=== PATIENT | male | born 1970 | race African-American/Black ===

== ENCOUNTER 2016-04-11 06:12 | Observation (INO) | payer BC, OTHER ==
--- NOTE | 2016-04-11 06:56 | ERNOTE ---
Medical Problem HPI - General Chief Complaint: General Assessment Time Seen by Provider: 04/11/16 06:33 Source: patient Exam Limitations: no limitations - Immun/Allergies/Home Medications Allergies/Adverse Reactions: Allergies amlodipine besylate [From Norvas] Allergy (Mild, Verified 04/11/16 06:23) EDEMA Iodinated Contrast Media - IV Dye Allergy (Unknown, Verified 04/11/16 06:23) shellfish derived Allergy (Unknown, Verified 04/11/16 06:23) Home Medications: HOME MEDICATIONS Buspirone HCl [Buspar] 10 mg PO BID 06/29/12 [Last Taken Unknown] Hydrochlorothiazide [Hydrodiuril] 25 mg PO DAILY 06/24/14 [Last Taken 07/01/14 06:00] Labetalol HCl [Trandate] 300 mg PO BID 06/24/14 [Last Taken 07/01/14 06:00] Losartan Potassium [Cozaar] 100 mg PO DAILY 06/24/14 [Last Taken 07/01/14 06:00] Clonidine HCl [Catapres] 0.2 mg PO BID 04/11/16 [Last Taken Unknown] - History of Present History Narrative: pt has had a cold since Sunday. today he is weak all over and has numbness down his left arm Timing: getting worse Severity: moderate Review of Systems - Review of Systems Constitutional: Present: See HPI, fever - 99 "up and down", weakness, fatigue EYE: Present: no symptoms reported ENT: Present: nose congestion Respiratory: Present: cough Cardiology: Absent: chest pain, edema Gastrointestinal/Abdominal: Present: nausea. Absent: vomiting, diarrhea Genitourinary: Present: no symptoms reported Musculoskeletal: Present: muscle pain - "all over" Skin: Present: no symptoms reported Neurological: Present: See HPI, numbness, tingling, other - Pain in left arm previously Endocrine: Absent: excessive sweating - Patient's Past Medical History Patient History - Medical: Other Patient History - Cardiac/Respiratory: Hypertension Patient History - Surgical Procedures: Other - Family History Mother Family History - Medical: History Unknown Father Family History - Medical: History Unknown - Social History Living Situations: home Smoking Status: Current every day smoker Have you smoked in the past 12 months: Yes Do you dip or chew tobacco: No Alcohol Use: occasionally Drug Use: none Physical Exam - Physical Exam General Appearance: Present: wd/wn, alert, no apparent distress Eye Exam: Normal inspection: bilateral Ears, Nose, Throat: Present: normal ENT inspection Neck: Present: normal inspection, supple Respiratory: Present: no respiratory distress, normal breath sounds, lungs clear Cardiovascular/Chest: Present: regular rate, rhythm, systolic murmur - 2/6 Extremity Exam: Present: normal inspection, non-tender, no edema, normal range of motion Neurological Exam: Present: alert, oriented, normal mood/affect, no motor/ sensory deficits Skin Exam: Present: normal color, warm/dry Lymphatic Exam: Present: no adenopathy ED Progress - Results and Orders Patient's Lab Results:: I have reviewed the patient's lab results. Results and Orders: Laboratory Tests 04/11/16 04/11/16 06:55 06:55 WBC 5.6 Hgb 14.7 Hct 41.4 L Plt Count 182 Neutrophils % 75.7 H Sodium 140 Potassium 2.5 L Chloride 101 Anion Gap 10.8 BUN 15 Creatinine 1.62 H Est GFR (Non-Af Amer) 60 Random Glucose 138 H Calcium 8.6 Total Bilirubin 0.9 AST 26 ALT 54 Alkaline Phosphatase 80 Troponin I 0.047 Total Protein 6.9 Albumin 3.8 - Vital Signs Vital Signs: Vital Signs 04/11/16 06:17 Temperature 37.3 C Pulse Rate 88 Respiratory 14 Rate Blood Pressure 196/96 O2 Sat by Pulse 97 Oximetry - EKG EKG: nonspecific ST T wave changes EKG read: Interp. by me - Progress/Reassessment Chief Complaint: General Assessment Progress Note-Subjective: 04/11/16 07:[address] Sanchez, Agrees with admit Departure - Departure Clinical Impression: Hypokalemia Disposition: [facility] Condition: Good
[2016-04-11 06:59] LABS: Hematocrit 41.4 % (42.0-52.0); Hemoglobin 14.7 gm/dL (13.5-18.0); Mean Cell Volume 88.3 fl (78-100); Mean Corpuscular Hemoglobin 31.3 pg (27-31); Mean Corpuscular Hgb Conc 35.5 g/dl (32-36); Mean Platelet Volume 10.9 fl (6.0-9.5); Neutrophil # 4.2 K/mm3 (1.3-6.0); Neutrophil % 75.7 % (42-75.0); Platelet Count 182 K/mm3 (150-450); Red Blood Count 4.69 M/mm3 (4.7-6.0); Red Cell Distribution Width 12.3 % (11.5-14.0); White Blood Count 5.6 K/mm3 (4.0-10.5)
[2016-04-11 07:19] LABS: Albumin * 3.8 gm/dl (3.4-5.0); Anion Gap 10.8 mmol/L (6.8-13.8); BUN/Creatinine Ratio 9.3 (9.0-21.6); Bilirubin, Total 0.9 mg/dL (0.0-1.1); Ca. Corrected For Albumin 8.4 mg/dL (8.4-10.2); Calcium * 8.6 mg/dL (7.9-10.9); Carbon Dioxide 30.7 mmol/L (24-32.6); Total Protein 6.9 gm/dL (6.2-8.2)
[2016-04-11 07:20] LABS: Troponin I 0.047 ng/ml (0.00-0.10)
[2016-04-11 07:28] LABS: Potassium 2.5 mmol/L (3.4-4.6)
[2016-04-11] MEDS ORDERED: POTASSIUM CHLORIDE 20 MEQ TABLET.SA PO ONE (08:13)
[2016-04-11] MEDS ORDERED: FLU VACC QS2016-17 36MOS UP/PF 60 MCG/0.5 ML DISP.SYRIN IM ONE (09:18)
[2016-04-11] MEDS: POTASSIUM CHLORIDE 20 MEQ in DEXTROSE 5%-NORMAL SALINE 990 ML IV SCH ×2 (09:19→16:49)
[2016-04-11] MEDS: ACETAMINOPHEN 500 MG TABLET PO PRN ×2 (09:55→16:55)
[2016-04-11 10:36] LABS: Chol/HDL Risk Ratio 3.5 mg/dL (3.3-5.0)
[2016-04-11] MEDS ORDERED: guaiFENesin 100 MG/5 ML BTL PO PRN (10:39)
--- NOTE | 2016-04-11 10:42 | HP ---
Chief Complaint - Chief Complaint Date of Service: 04/11/16 Time of Service: 09:00 Chief Complaint: Weakness and Parathesia History of Present Illness: 46 years old male adm to the hospital from ER with reports of parathesia and weakness than began Sunday. PMH significant for depression, alcohol abuse, hypertension, hypokalenia and smoker. Pt stated Sunday he was having weakness, numbness and tingling to left arm. Yesterday he started with a non productive cough, body ache and a fever today. He Follow up with Dr Spring for uncontrolled Hypertension, despite changes made to his medications his blood pressure remain elevated SBP 170 and DBP 90 or >. Pt stated he drink a bottle Gin or vodko daily to help with his depression. pt is agreeable to follow up with Dr. keith. In ER K+ 2.5 and he was supplemented. - Patient's Past Medical History Patient History - Medical: Alcohol Abuse, Anxiety, Depression, GERD, Kidney stone, Obesity, Other - smoker Patient History - Cardiac/Respiratory: Hypertension Patient History - Cancer: No Hx of Cancer Patient History - Surgical Procedures: Other - Incision and draiange of abcess, Fistulotomy - Family History Mother Family History - Medical: , History Unknown Father Family History - Medical: , History Unknown - Social History Living Situations: home Does anyone smoke in the home?: Yes Smoking Status: Current every day smoker Have you smoked in the past 12 months: Yes - 1 pack Do you dip or chew tobacco: No Smoking Start Date: 03/26/88 Smoking Stop Date: 04/10/16 Patient requests Smoking Cessation Consult: Yes Initiate information on Smoking Cessation: Yes Alcohol Use: heavy - Daily bottle Gin or vodka Drug Use: none - Immunizations Immunizations Up to Date: No History of Influenza Vaccine: No Review Of Systems (GEN) - Review of Systems Generalized/Overall Review: Present: Weakness, Chills EENTM: Present: No Symptoms Reported Respiratory: Present: Cough - non productive Cardiac: Present: No Symptoms Reported Abdominal: Present: No Symptoms Reported Genitourinary: Present: No Symptoms Reported Musculoskeletal: Present: Other - weakness Neurological: Present: Depressed, Numbness, Tingling Skin: Present: No Symptoms Reported Endocrine: Present: No Symptoms Reported Allergies/Adverse Reactions: Allergies Allergy/AdvReac Type Severity Reaction Status Date / Time amlodipine besylate Allergy Mild EDEMA Verified 04/11/16 06:23 [From [facility]] Iodinated Contrast Media - Allergy Unknown Verified 04/11/16 06:23 IV Dye shellfish derived Allergy Unknown Verified 04/11/16 06:23 Home Medications: HOME MEDICATIONS Buspirone HCl [Buspar] 10 mg PO BID 06/29/12 [Last Taken 04/11/16 05:00] Hydrochlorothiazide [Hydrodiuril] 25 mg PO DAILY 06/24/14 [Last Taken 04/11/16 05:00] Labetalol HCl [Trandate] 300 mg PO BID 06/24/14 [Last Taken 04/11/16 05:00] Losartan Potassium [Cozaar] 100 mg PO DAILY 06/24/14 [Last Taken 04/11/16 05:00] Clonidine HCl [Catapres] 0.2 mg PO BID 04/11/16 [Last Taken 04/11/16 05:00] Exam - Exam Vital Signs: Vital Signs - Last Taken Temp 38.4 C H 04/11/16 08:47 Pulse 82 04/11/16 08:47 Resp 18 04/11/16 08:47 BP 157/86 04/11/16 08:47 Pulse Ox 98 04/11/16 08:47 Constitutional: Present: Alert, Oriented x3, Cooperative, Well developed, No distress, Obese ENT Exam: Present: normal ENT inspection Eye Exam: bilateral eye: PERRL Neck: Present: full range of motion Back Exam: Present: normal inspection, no CVA tenderness, no vertebral tenderness Respiratory: Present: chest non-tender, lungs clear, normal breath sounds, no respiratory distress Cardiovascular/Chest: Present: normal peripheral pulses, regular rate, rhythm, no chest tenderness, no edema Peripheral Pulses: dorsalis-pedis (R): 3+, dorsalis-pedis (L): 3+ Abdomen: Present: Normal bowel sounds, soft, nontender, nondistended /Rectal: Present: Exam deferred Extremity: Present: normal range of motion, non-tender, normal inspection, no pedal edema, no calf tenderness Skin Exam: Present: normal color, warm/dry, no cyanosis Lymphatic: Present: no adenopathy Neurologic: Present: oriented x 3 Appearance: Present: appropriate appearance Eye contact: Present: cooperative, good eye contact Thoughts: Present: normal thought pattern Diagnostic Studies: Laboratory Results WBC 5.6 K/mm3 (4.0-10.5) 04/11/16 06:55 RBC 4.69 M/mm3 (4.7-6.0) L 04/11/16 06:55 Hgb 14.7 gm/dL (13.5-18.0) 04/11/16 06:55 Hct 41.4 % (42.0-52.0) L 04/11/16 06:55 MCV 88.3 fl (78-100) 04/11/16 06:55 MCH 31.3 pg (27-31) H 04/11/16 06:55 MCHC 35.5 g/dl (32-36) 04/11/16 06:55 RDW 12.3 % (11.5-14.0) 04/11/16 06:55 Plt Count 182 K/mm3 (150-450) 04/11/16 06:55 MPV 10.9 fl (6.0-9.5) H 04/11/16 06:55 Immature Gran % (Auto) 0.40 % (0.001-0.429) 04/11/16 06:55 Immature Gran # (Auto) 0.02 K/mm3 (0.000-0.0310) 04/11/16 06:55 Neutrophils % 75.7 % (42-75.0) H 04/11/16 06:55 Lymphocytes % 12.9 % (20-51) L 04/11/16 06:55 Monocytes % 9.1 % (0.0-9) H 04/11/16 06:55 Eosinophils % 1.4 % (0.0-3.0) 04/11/16 06:55 Basophils % 0.5 % (0.0-1.0) 04/11/16 06:55 Nucleated RBC % 0.0 k/mm3 (0-1) 04/11/16 06:55 Neutrophils # 4.2 K/mm3 (1.3-6.0) 04/11/16 06:55 Lymphocytes # 0.7 k/mm3 (1.5-3.5) L 04/11/16 06:55 Monocytes # 0.5 k/mm3 (0.0-1.0) 04/11/16 06:55 Eosinophils # 0.1 k/mm3 (0.0-0.7) 04/11/16 06:55 Absolute Basophils 0.0 k/mm3 (0.0-0.1) 04/11/16 06:55 Sodium 140 mmol/L (132-142) 04/11/16 06:55 Plasma Sodium 141 mmol/L (130-142) 04/11/16 06:55 Potassium 2.5 mmol/L (3.4-4.6) L 04/11/16 06:55 Chloride 101 mmol/L (97-106) 04/11/16 06:55 Carbon Dioxide 30.7 mmol/L (24-32.6) 04/11/16 06:55 Anion Gap 10.8 mmol/L (6.8-13.8) 04/11/16 06:55 BUN 15 mg/dL (6-23) 04/11/16 06:55 Creatinine 1.62 mg/dL (0.4-1.4) H 04/11/16 06:55 Est GFR (Non-Af Amer) 60 mL/min (60-130) 04/11/16 06:55 BUN/Creatinine Ratio 9.3 (9.0-21.6) 04/11/16 06:55 Random Glucose 138 mg/dL (70-110) H 04/11/16 06:55 Calcium 8.6 mg/dL (7.9-10.9) 04/11/16 06:55 Calcium Adj for Albumin 8.4 mg/dL (8.4-10.2) 04/11/16 06:55 Total Bilirubin 0.9 mg/dL (0.0-1.1) 04/11/16 06:55 AST 26 U/L (0-48) 04/11/16 06:55 ALT 54 U/L (19-67) 04/11/16 06:55 Alkaline Phosphatase 80 U/L (50-170) 04/11/16 06:55 Troponin I 0.047 ng/ml (0.00-0.10) 04/11/16 06:55 Total Protein 6.9 gm/dL (6.2-8.2) 04/11/16 06:55 Albumin 3.8 gm/dl (3.4-5.0) 04/11/16 06:55 Assessment/Plan - Narrative Narrative: Hypokalemia- likely due to diuretic use Numbness, parathesia and weakness can account for pt hypokalemic state. Supplemented with K-dur 60 meq x1 now and continue with scheduled doses. Will Hold HCTZ monitor BMP later today Hypertension- uncontrolled, could account to his alcohol abuse and smoking On adm BP 171/89---->157/86, pt had taken his daily dose of medications at home before coming to hospital Monitor Vitals signs. Resume home dose of medications Smoking cessation and alcohol cessation education Depression continue with home dose Buspar Follow up with Dr Keith upon discharge Substance abuse Smoking cessation and nicotine patch alcohol withdrawal protocols. Influenza- suspicious Reports of body ache, temp 38.4 on adm Influenza antigen pending Robitussin PRN Tylenol for pain/ Fever On adm WBC 5.6---> CXR no acute cardiopulmonary findings VTE ppx : SCD and ambulate GI ppx: protonix Code Status: Full - Assessment/Plan (1) Hypokalemia Problem: Acute (2) Malignant hypertension Problem: Chronic (3) Depression Problem: Chronic (4) Smoker Problem: Chronic (5) Alcohol abuse Problem: Chronic
[2016-04-11] MEDS ORDERED: LABETALOL HCL 300 MG TABLET PO SCH (11:00)
[2016-04-11] MEDS: POTASSIUM CHLORIDE 20 MEQ TABLET.SA PO SCH ×4 (11:14→22:45)
[2016-04-11] MEDS: NICOTINE 21 MG PATC TD SCH (11:14)
[2016-04-11] MEDS: CLONIDINE HCL 0.2 MG TABLET PO SCH ×2 (11:15→20:01)
[2016-04-11] MEDS: busPIRone HCL 5 MG TABLET PO SCH ×2 (11:15→20:01)
[2016-04-11] MEDS: LABETALOL HCL 200 MG, LABETALOL HCL 100 MG PO SCH ×4 (11:16→20:02)
[2016-04-11] MEDS: FAMOTIDINE 20 MG TABLET PO SCH (11:16)
[2016-04-11] MEDS: buPROPion HCL 150 MG TAB.SR.24H PO SCH (12:50)
[2016-04-11] MEDS: ENALAPRILAT DIHYDRATE 1.25 MG/ML VIAL IV SCH ×2 (16:48→22:46)
[2016-04-11 17:25] LABS: Anion Gap 12.7 mmol/L (6.8-13.8); BUN/Creatinine Ratio 9.4 (9.0-21.6); Calcium * 8.8 mg/dL (7.9-10.9); Carbon Dioxide 29.2 mmol/L (24-32.6); Estimated Creat Clear 64.9; Potassium 2.9 mmol/L (3.4-4.6)
[2016-04-11] MEDS ORDERED: SPIRONOLACTONE 25 MG TABLET PO STA (19:09)
[2016-04-11] MEDS ORDERED: POTASSIUM CHLORIDE 10 MEQ TABLET.SA ONE (19:58)
[2016-04-12] MEDS ORDERED: POTASSIUM CHLORIDE 20 MEQ TABLET.SA ONE (00:28)
[2016-04-12] MEDS: POTASSIUM CHLORIDE 20 MEQ TABLET.SA PO SCH (00:33)
[2016-04-12] MEDS: ACETAMINOPHEN 500 MG TABLET PO PRN (00:35)
[2016-04-12] MEDS: POTASSIUM CHLORIDE 20 MEQ in DEXTROSE 5%-NORMAL SALINE 990 ML IV SCH (01:20)
[2016-04-12] MEDS: SODIUM CHLORIDE 45 SPRAY BTL NS SCH ×2 (01:49→08:58)
[2016-04-12] MEDS: ENALAPRILAT DIHYDRATE 1.25 MG/ML VIAL IV SCH (04:07)
[2016-04-12 05:40] LABS: Hematocrit 40.3 % (42.0-52.0); Hemoglobin 13.6 gm/dL (13.5-18.0); Mean Cell Volume 90.6 fl (78-100); Mean Corpuscular Hemoglobin 30.6 pg (27-31); Mean Corpuscular Hgb Conc 33.7 g/dl (32-36); Mean Platelet Volume 11.7 fl (6.0-9.5); Neutrophil # 1.9 K/mm3 (1.3-6.0); Neutrophil % 54.2 % (42-75.0); Platelet Count 167 K/mm3 (150-450); Red Blood Count 4.45 M/mm3 (4.7-6.0); Red Cell Distribution Width 12.5 % (11.5-14.0); White Blood Count 3.5 K/mm3 (4.0-10.5)
[2016-04-12 05:53] LABS: Albumin * 3.5 gm/dl (3.4-5.0); Anion Gap 11.8 mmol/L (6.8-13.8); BUN/Creatinine Ratio 7.9 (9.0-21.6); Bilirubin, Total 0.8 mg/dL (0.0-1.1); Ca. Corrected For Albumin 8.2 mg/dL (8.4-10.2); Calcium * 8.1 mg/dL (7.9-10.9); Carbon Dioxide 27.5 mmol/L (24-32.6); Potassium 3.3 mmol/L (3.4-4.6); Total Protein 6.6 gm/dL (6.2-8.2)
[2016-04-12] MEDS ORDERED: POTASSIUM CHLORIDE 20 MEQ TABLET.SA PO ONE (07:51)
[2016-04-12] MEDS: busPIRone HCL 5 MG TABLET PO SCH (08:57)
[2016-04-12] MEDS: buPROPion HCL 150 MG TAB.SR.24H PO SCH (08:57)
[2016-04-12] MEDS: CLONIDINE HCL 0.2 MG TABLET PO SCH (08:57)
[2016-04-12] MEDS: FAMOTIDINE 20 MG TABLET PO SCH (08:58)
[2016-04-12] MEDS: LABETALOL HCL 200 MG, LABETALOL HCL 100 MG PO SCH ×2 (08:58)
[2016-04-12] MEDS ORDERED: LOSARTAN POTASSIUM 50 MG TABLET PO SCH (09:00)
[2016-04-12] MEDS ORDERED: FLUTICASONE PROPIONATE 120 SPRAY INHALER NS SCH (09:30)
[2016-04-12] MEDS ORDERED: SPIRONOLACTONE 25 MG TABLET PO SCH (10:00)
--- NOTE | 2016-04-12 10:02 | DS ---
(1) Hypokalemia Problem: Acute (2) Malignant hypertension Problem: Chronic (3) Depression Problem: Chronic (4) Smoker Problem: Chronic (5) Alcohol abuse Problem: Chronic Description of Stay: Date of admission: 04/11/16 Date of discharge: 04/12/16 Hospital Course 46 years old male adm to the hospital from ER with reports of parathesia and weakness than began Sunday. PMH significant for depression, alcohol abuse, hypertension, hypokalemia and smoker. Pt stated Sunday he was having weakness, numbness and tingling to left arm. Yesterday he started with a non productive cough, body ache and a fever today. He Follow up with Dr Spring for uncontrolled Hypertension, despite changes made to his medications his blood pressure remain elevated SBP 170 and DBP 90 or >. Pt stated he drink a bottle Gin or vodko daily to help with his depression. During this adm he was supplemented with K-dur for hypokalemia, he was initiated with Aldactone and encouraged to cut back on his drinking and smoking thats contributing to his hypertension and hypokalemia. pt is somewhat reluctant to discuss plan of action he will take upon discharge to have a healthier lifestyle. he will need to follow up with Dr Montgomery and schedule out -pt sleep study. He will continue with wellbutrin for his depression upon discharge. He isn't optimistic about his job prospect and stated he is depress about every day happenings in his life. pt understand that continued excessive drinking and smoking and BP uncontrolled can lead to stroke, [place] or his inevitable . Plan of care discussed with pt he verbalized understanding and agree. Diagnostic testing: CXR: No acute cardiopulmonary findings New medications and Changes made: Valsartan 80mg BID Aldactone 25mg daily chlorthalidone 12.5mg daily. Follow up: See Dr Montgomery 1-7 days will need potential sleep study BMP in 3 days Alcohol Anonymous counseling Procedures Performed: none Discharge Disposition: Home self care Disposition: Home self-care Condition: Good Discharge Activity: Activity as tolerated Discharge Diet: Other - Low sodium diet Referrals: Amy Montgomery MD [Primary Care Provider] - Additional Patient Instructions (free text): Follow up with Dr Montgomery in 1-7 days and bring BMP results Need out-pt sleep study Seek AA counseling, please provide info Prescriptions (Any new or edited meds): Chlorthalidone [Hygroton] 12.5 mg PO DAILY #30 tab Fluticasone Propionate [Flonase] 1 spray NS DAILY #1 inhaler Nicotine [Nicoderm] 21 mg TD Q24H #30 patch.td24 Spironolactone [Aldactone] 25 mg PO DAILY #30 tablet Valsartan [Diovan] 80 mg PO BID #60 tablet buPROPion HCL [Wellbutrin Xl] 150 mg PO DAILY #30 tab.sr.24h guaiFENesin [Robitussin] 100 mg PO Q4H PRN #1 btl PRN Reason: Cough Complete Home Medications List: Complete Home Medication List: Buspirone HCl [Buspar] 10 mg PO BID 06/29/12 Labetalol HCl [Trandate] 300 mg PO BID 06/24/14 Clonidine HCl [Catapres] 0.2 mg PO BID 04/11/16 Chlorthalidone [Hygroton] 12.5 mg PO DAILY #30 tab 04/12/16 Fluticasone Propionate [Flonase] 1 spray NS DAILY #1 inhaler 04/12/16 Nicotine [Nicoderm] 21 mg TD Q24H #30 patch.td24 04/12/16 Spironolactone [Aldactone] 25 mg PO DAILY #30 tablet 04/12/16 Valsartan [Diovan] 80 mg PO BID #60 tablet 04/12/16 buPROPion HCL [Wellbutrin Xl] 150 mg PO DAILY #30 tab.sr.24h 04/12/16 guaiFENesin [Robitussin] 100 mg PO Q4H PRN #1 btl 04/12/16 Amb Orders for Discharge: Basic Metabolic Panel Time Frame: 2 Days, Location: Determined By Patient
[2016-04-12] MEDS: NICOTINE 21 MG PATC TD SCH (10:24)
[2016-04-12 10:56] VITALS: BP 165/99
== END 2016-04-12 13:30 | disposition home or self-care (01) ==
LOC: ER 06:12 → MS 07:59
PROVIDERS: ADMIT Internal Medicine; ATTEND Internal Medicine
DX: E87.6 Hypokalemia (principal); I10 Essential (primary) hypertension; F17.210 Nicotine dependence, cigarettes, uncomplicated; F32.9 Major depressive disorder, single episode, unspecified; F10.10 Alcohol abuse, uncomplicated
CPT/HCPCS: 36415; 71020; 80048; 80053; 80061; 82947; 84132; 84484; 85025; 87400; 90471; 90686; 93005; 96365; 96375; 99284; G0378

== ENCOUNTER 2016-05-18 16:24 | Emergency (ER) | payer BC, OTHER ==
[2016-05-18] MEDS ORDERED: DICYCLOMINE HCL 10 MG/ML AMPUL IM ONE ×2 (16:55→17:09)
--- NOTE | 2016-05-18 17:11 | ERNOTE ---
Abdominal HPI - Narrative Date of Service: 05/18/16 - General Chief Complaint: Abdominal Pain Time Seen by Provider: 05/18/16 16:34 Source: patient Exam Limitations: no limitations - Immun/Allergies/Home Medications Immunizatons: IMMUNIZATION HX Immunizations Up to Date No History of Influenza Vaccine No Allergies/Adverse Reactions: Allergies amlodipine besylate [From Norvasc] Allergy (Mild, Verified 04/11/16 06:23) EDEMA Iodinated Contrast Media - IV Dye Allergy (Unknown, Verified 04/11/16 06:23) shellfish derived Allergy (Unknown, Verified 04/11/16 06:23) Home Medications: HOME MEDICATIONS Buspirone HCl [Buspar] 10 mg PO BID 06/29/12 [Last Taken 04/11/16 05:00] Labetalol HCl [Trandate] 300 mg PO BID 06/24/14 [Last Taken 04/11/16 05:00] Clonidine HCl [Catapres] 0.2 mg PO BID 04/11/16 [Last Taken 04/11/16 05:00] Spironolactone [Aldactone] 25 mg PO DAILY #30 tablet 04/12/16 [Last Taken Unknown] buPROPion HCL [Wellbutrin Xl] 150 mg PO DAILY #30 tab.sr.24h 04/12/16 [Last Taken Unknown] Aspirin [Aspirin Enteric Coated] 81 mg PO DAILY 05/18/16 [Last Taken Unknown] Losartan/Hydrochlorothiazide [Hyzaar 100-25 Tablet] 1 each PO DAILY 05/18/16 [ Last Taken Unknown] - History of Present Illness Narrative: Pt presents to ED with c/o left lower quadrant abdominal pain. Pt states the pain is a constant ache with occasional shooting pain that wraps around to left side of back. Pt states the pain states the pain was a 7/10 this morning on pain scale and now is a 5/10. Pt states this started the pain started around 03/11 which is about 1 1/2 weeks ago. Pt denies food making the pain worse or better. Pt states pressure on the abdomen makes it worse. Pt feels bloated. Pt had one formed bowel movement today. Pt states he normally has 3 bowel movements a day. Pt denies fevers, nausea, vomiting, sore throat, nasal drainage , cough, shortness of breath, chest pain. Date (Duration): 05/07/16 Time (Timing): 09:00 Timing: constant Quality: moderate - pain 5/10 Activities at Onset: none Associated Symptoms: Present: back pain - left back pain. Absent: headache, chest pain, fever/chills, heartburn, nausea, vomiting, loss of appetite, shortness of breath Prior Abdominal Problems: Present: none Prior Treatment: Present: recently seen Review of Systems - Review of Systems Constitutional: Present: no symptoms reported. Absent: recent illness, fever, weakness, fatigue, decreased activity level EYE: Present: no symptoms reported. Absent: eye pain, vision changes ENT: Present: no symptoms reported. Absent: ear pain, nose congestion, nasal drainage, sore throat Respiratory: Present: no symptoms reported. Absent: shortness of breath, cough Cardiology: Present: no symptoms reported. Absent: chest pain, palpitations Gastrointestinal/Abdominal: Present: abdominal pain - left lower quadrant 5/10. Absent: nausea, vomiting, diarrhea, constipation, eating less Genitourinary: Present: no symptoms reported. Absent: frequency, pain Musculoskeletal: Present: back pain - left lower quadrant abd pain radiates around abd to the left lower back Skin: Present: no symptoms reported. Absent: rash Neurological: Present: no symptoms reported. Absent: anxiety, depressed, headache, dizziness/light-headedness, numbness, tingling Endocrine: Present: no symptoms reported. Absent: excessive sweating, intolerance to heat, intolerance to cold, increased hunger, increased thirst Hematologic/Lymphatic: Present: no symptoms reported. Absent: easy bruising Psych: Present: no symptoms reported All Other Systems: All systems neg except as marked - Patient's Past Medical History Patient History - Medical: Alcohol Abuse, Anxiety, Depression, GERD, Kidney stone, Obesity, Other Patient History - Cardiac/Respiratory: CPAP/BiPAP Home Use, Sleep Apnea Patient History - Cancer: No Hx of Cancer Patient History - Surgical Procedures: Other - Family History Mother Family History - Medical: , History Unknown Father Family History - Medical: , History Unknown - Social History Living Situations: home Abuse History: No History of abuse Psych History: Hx of Depression Does anyone smoke in the home?: Yes Smoking Status: Current some day smoker Have you smoked in the past 12 months: Yes Alcohol Use: heavy Drug Use: none - Immunizations Immunizations Up to Date: No History of Influenza Vaccine: No Physical Exam - Physical Exam General Appearance: Present: wd/wn, alert, no apparent distress. Absent: anxious Eye Exam: Normal inspection: bilateral, PERRL: bilateral, EOMI: bilateral Ears, Nose, Throat: Present: hearing grossly normal Neck: Present: normal inspection, nontender, supple Respiratory: Present: no respiratory distress, normal breath sounds, no accessory muscle use, chest nontender, lungs clear. Absent: decreased breath sounds, crackles, rhonchi, wheezing Cardiovascular/Chest: Present: regular rate, rhythm, no murmur, normal peripheral pulses. Absent: irregularly irregular Gastrointestinal/Abdominal: Present: normal bowel sounds, soft, no organomegaly , tenderness - left upper and lower quadrant pain to palpation, distended. Absent: abnormal bowel sounds, guarding, mass Back Exam: Present: normal inspection, normal range of motion, no CVA tenderness , no vertebral tenderness. 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 Absent: skin rash Lymphatic Exam: Present: no adenopathy ED Progress - Date and Time Seen: Date and Time: 05/18/16 19:40 Attempted to get ahold of Dr Crum who is admissions coordinator for [facility] for 45 minutes without success so called to consult Dr Shelton at [facility]. After Nikita requested pt. be sent to him Dr Crum called back and requested that we send him to [facility] which pt. would prefer anyway and is the closest facility so will send pt. to [facility] for stent placement early in the am. - Results and Orders Patient's Lab Results:: I have reviewed the patient's lab results. - Vital Signs Patient's Vital Signs:: I have reviewed the patient's vital signs. Vital Signs: Vital Signs 05/18/16 16:28 Temperature 36.1 C L Pulse Rate 70 Respiratory 18 Rate Blood Pressure 148/88 O2 Sat by Pulse 95 Oximetry - CT/Ultrasound CT/Ultrasound Narrative: CT scan positive for 9.5mm stone. - Progress/Reassessment Chief Complaint: Abdominal Pain Progress:: Improved Departure - Departure Clinical Impression: Renal calculus or stone Disposition: [facility] Condition: Good Referrals: Amy Montgomery MD [Primary Care Provider] -
[2016-05-18 17:26] LABS: Hematocrit 40.4 % (42.0-52.0); Hemoglobin 13.6 gm/dL (13.5-18.0); Mean Corpuscular Hgb Conc 33.7 g/dl (32-36); Mean Platelet Volume 10.3 fl (6.0-9.5); Neutrophil # 2.5 K/mm3 (1.3-6.0); Neutrophil % 49.9 % (42-75.0); Platelet Count 206 K/mm3 (150-450); Red Blood Count 4.39 M/mm3 (4.7-6.0); Red Cell Distribution Width 13.1 % (11.5-14.0); White Blood Count 5.1 K/mm3 (4.0-10.5)
[2016-05-18 17:29] LABS: Urine Bilirubin Negative (NEGATIVE); Urine Blood 250 /ul (NEGATIVE); Urine Ketone Negative (NEGATIVE); Urine Nitrite Negative (NEGATIVE); Urine Protein 15 mg/dL (NEGATIVE); Urine Specific Gravity >=1.030 SP.GR. (1.005-1.030); Urine Urobilinogen Normal (NORMAL)
[2016-05-18 17:40] LABS: Urine Appearance Slightly Cloudy; Urine Bacteria 1+; Urine Color Yellow; Urine RBC >50 /hpf (0-5); Urine WBC TRACE /hpf (0-5)
[2016-05-18 17:45] LABS: Albumin * 4.2 gm/dl (3.4-5.0); Anion Gap 10.3 mmol/L (6.8-13.8); BUN/Creatinine Ratio 10.7 (9.0-21.6); Bilirubin, Total 0.4 mg/dL (0.0-1.1); Ca. Corrected For Albumin 8.4 mg/dL (8.4-10.2); Calcium * 8.9 mg/dL (7.9-10.9); Carbon Dioxide 31.9 mmol/L (24-32.6); Potassium 3.2 mmol/L (3.4-4.6); Total Protein 7.6 gm/dL (6.2-8.2)
[2016-05-18] MEDS ORDERED: NORMAL SALINE 1,000 ML IV ONE (17:50)
[2016-05-18] MEDS ORDERED: KETOROLAC TROMETHAMINE 30 MG/ML VIAL IV ONE (17:56)
[2016-05-18 19:30] VITALS: BP 174/103
== END 2016-05-18 20:41 | disposition short-term general hospital (02) ==
LOC: ER 16:24
DX: N20.0 Calculus of kidney (principal); Z72.0 Tobacco use; F41.8 Other specified anxiety disorders

== ENCOUNTER 2016-05-24 13:22 | Day surgery (SDC) | payer BC, OTHER ==
[~2016-05-24 13:22] MED LIST: NORMAL SALINE 1,000 ML IV PRN
--- OUTSIDE RECORDS SUMMARY | 2016-05-24 13:26 | XMS REPORT | Continuity of Care Document ---
:1970 Author Organization [facility] ([facility]) Address [address] [place] [address] Phone [phone] Care Team Providers Name Role Phone Amy Montgomery Primary Care Provider [phone] Source Comments This disclosure is being made pursuant to the Care Everywhere program, applicable federal and state laws, and may not contain all informaitonavailable regarding this patient.[facility] ([facility]) Active Allergies and Adverse Reactions No Known Allergies Current Medications Prescription Sig. Disp. Refills Start Date End Date Status busPIRone (BUSPAR) Take 10 mg by Active 10 mg tablet mouth 2 times daily. labetalol 300 mg Take 2 360 tablet 3 06/07/2015 Active tablet tablets (600 mg total) by mouth 2 times daily. losartan-hydrochloro Take 1 tablet 30 tablet 1 02/24/2016 Active thiazide 100-25 mg by mouth per tablet daily. cloNIDine HCl 0.2 mg Take 1 tablet 60 tablet 11 04/04/2016 Active tablet (0.2 mg total) by mouth 2 times daily. spironolactone 25 mg Take 25 mg by 0 04/12/2016 Active tablet mouth daily. multivitamin tablet Take 1 tablet Active by mouth daily. buPROPion Take 150 mg Active (WELLBUTRIN XL) 150 by mouth mg extended release every tablet 24 hour morning. chlorthalidone 25 mg Take 25 mg by 0 04/12/2016 Discontinued tablet mouth daily. 7 valsartan 80 mg Take 80 mg by 0 04/12/2016 Discontinued tablet mouth 2 times 7 daily. POTASSIUM Take 1 tablet Discontinued (POTASSIMIN PO) by mouth. 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 CARDIOVASCULAR PROCEDURES STRESS TESTS: SEH (Suboptimal test due to inadequate maximum HR. There were no changes observed w/ stress. ECHO is consistent w/ hypertensive heart disease. Moderate to severe LVH. Read per [facility]) - 01/18/2011 Tobacco abuse Obesity Sleep apnea Overview: CPAP Most Recent Encounters Date Type Specialty Providers Description 05/02/2016 Office Visit [facility] Jodee Spring MD Dx: Essential hypertension (Primary Dx) 04/04/2016 Office Visit [facility] Jodee Spring MD Dx: Essential hypertension, benign (Primary Dx) 02/24/2016 Refill Cardiac Rehabilitation Jodee Spring MD Dx: Essential hypertension (Primary Dx) Social History Tobacco Use Types Packs/Day Years Used Date Former Smoker Cigarettes 1 Quit: 04/11/2016 Smokeless Tobacco: Never Used Tobacco Cessation:Ready to Quit: Yes; Counseling Given: Yes Comments: Alcohol Use Drinks/Week oz/Week Comments Yes Last Filed Vital Signs Vital Sign Reading Time Taken Blood Pressure 180/98 05/02/2016 2:18 PM BACK ROLL LATHE OPERATOR Pulse 60 05/02/2016 2:18 PM BACK ROLL LATHE OPERATOR Temperature 36.1 C (97 F) 05/27/2010 1:37 PM BACK ROLL LATHE OPERATOR Respiratory Rate - - Height 1.753 m (5' 9") 05/02/2016 2:18 PM BACK ROLL LATHE OPERATOR Weight 131.09 kg (289 lb) 05/02/2016 2:18 PM BACK ROLL LATHE OPERATOR Body Mass Index 42.66 05/02/2016 2:18 PM BACK ROLL LATHE OPERATOR Oxygen Saturation - - Plan of Care Date Type Specialty Providers Description 08/17/2016 Appointment Heart and Vascular Joede Spring MD Chief Comp: Patient [address] [place] [address] Visit [phone] (Fax) Health Maintenance Due Date Last Done Comments Hepatitis B Vaccine (1 of 3 - Primary Series) 1970 Tdap Vaccine 1982 Lipid Disorder Screening 1989 MMR Vaccine 1989 Td Vaccine 1989 Influenza Vaccine: Seasonal (#1) 10/25/2015 Results from Last 3 Months Not on file
[2016-05-24] MEDS ORDERED: NORMAL SALINE 1,000 ML IV ONE (14:06)
--- NOTE | 2016-05-24 15:41 | OR ---
Operative Report - Dictated Report Narrative: Location: Main OR Anesthesia: General Preoperative diagnosis: Left stone(s) Postoperative diagnosis: same Procedure: #1 left ESWL Indications: 46-year-old male large 1 cm proximal ureteral calculus post manipulation and stenting. 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 Final pathology reportedly not TA G1 TCC however based on appearance I believe it really is. Very important at least for the next couple of years he have at the very least an annual cystoscopy. Patient is here today for left ESWL. Procedure: Consent obtained. Risks discussed. Brought to the operating room where general endotracheal anesthesia was induced. Timeout taken per protocol. Fluoroscopy was used to localize the stones in 2 planes. A total of 3000 shocks were delivered at a maximal energy of 24 kV. Stone was easily visible at the beginning of the case. There was radiographic evidence of fragmentation at the conclusion of the case. EBL: 0 cc Specimen: None Condition: Patient tolerated Important findings: Stone was very visible at the beginning of case, completely in visible at the conclusion of the case using fluoroscopy. Stent was appropriately positioned prior to surgery and remains. Follow Up: We'll obtain KUB tomorrow morning. Need radiology to call me to make sure there are no clinically significant fragments and that the stone does look indeed fragmented enough to try and remove stent on Sunday. We'll have Dr. Burroughs do that with some anesthesia. If KUB shows significant stone will then change plan to left ureteroscopy with laser/basket possible stent replacement following Sunday. Patient should follow with me after stent removal in roughly 6 weeks with a KUB and urinalysis. We can discuss dietary and go over stone results at that point. We'll need to strain after stent comes out.
[2016-05-24 17:13] VITALS: BP 160/88
== END 2016-05-24 13:23 | disposition home or self-care (01) ==
LOC: AMB 13:22
PROVIDERS: ATTEND Urology
PROC: 0TF7XZZ Fragmentation in Left Ureter, External Approach (ICD-10-PCS; principal; 2016-05-24 16:10)
DX: N20.1 Calculus of ureter (principal); I10 Essential (primary) hypertension; E66.9 Obesity, unspecified; Z68.41 Body mass index [BMI] 40.0-44.9, adult

== ENCOUNTER 2016-05-26 12:40 | Day surgery (SDC) | payer BC, OTHER ==
[~2016-05-26 12:40] MED LIST changes: +ACETAMINOPHEN WITH CODEINE 1 EACH TABLET PO PRN; +CIPROFLOXACIN HCL 500 MG TABLET PO PRN; +KETOROLAC TROMETHAMINE 30 MG/ML VIAL IV PRN; -NORMAL SALINE 1,000 ML IV PRN; +RINGERS SOLUTION,LACTATED 1,000 ML IV PRN; +oxyCODONE HCL/ACETAMINOPHEN 1 TAB TABLET PO PRN
--- OUTSIDE RECORDS SUMMARY | 2016-05-26 12:49 | XMS REPORT | Continuity of Care Document ---
:1970 Author Organization [facility] ([facility]) Address [address] [place] [address] Phone [phone] Care Team Providers Name Role Phone Amy Montgomery Primary Care Provider [phone] Source Comments This disclosure is being made pursuant to the Care Everywhere program, applicable federal and state laws, and may not contain all informaitonavailable regarding this patient.[facility] ([facility]) Active Allergies and Adverse Reactions No Known [...] MD Dx: Essential hypertension, benign (Primary Dx) Social History Tobacco Use Types Packs/Day Years Used Date Former Smoker Cigarettes 1 Quit: 04/11/2016 Smokeless Tobacco: Never Used Tobacco Cessation:Ready to Quit: Yes; Counseling Given: Yes Comments: Alcohol Use Drinks/Week oz/Week Comments Yes Last Filed Vital Signs Vital Sign Reading Time Taken Blood Pressure 180/98 05/02/2016 2:18 PM INDUSTRIAL PRODUCTION MANAGER Pulse 60 05/02/2016 2:18 PM INDUSTRIAL PRODUCTION MANAGER Temperature 36.1 C (97 F) 05/27/2010 1:37 PM INDUSTRIAL PRODUCTION MANAGER Respiratory Rate - - Height 1.753 m (5' 9") 05/02/2016 2:18 PM INDUSTRIAL PRODUCTION MANAGER Weight 131.09 kg (289 lb) 05/02/2016 2:18 PM INDUSTRIAL PRODUCTION MANAGER Body Mass Index 42.66 05/02/2016 2:18 PM INDUSTRIAL PRODUCTION MANAGER Oxygen Saturation - - Plan of Care Date Type Specialty Providers Description 08/17/2016 Appointment Heart and Vascular Jodee Spring MD Chief Comp: Patient [address] [place] [address] Visit [phone] (Fax) Health Maintenance Due Date Last Done Comments Hepatitis B Vaccine (1 of 3 - Primary Series) 1970 Tdap Vaccine 1982 Lipid Disorder Screening 1989 MMR Vaccine 1989 Td Vaccine 1989 Influenza Vaccine: Seasonal (#1) 10/25/2015 Results from Last 3 Months Not on file
[2016-05-26] MEDS ORDERED: RINGERS SOLUTION,LACTATED 1,000 ML IV ONE (13:06)
[2016-05-26] MEDS ORDERED: LIDOCAINE HCL 10 APPL CARTRIDGE TP ONE (14:15)
[2016-05-26 16:26] VITALS: BP 160/94
== END 2016-05-26 12:41 | disposition home or self-care (01) ==
LOC: AMB 12:40
PROVIDERS: ATTEND Urology
PROC: 0TP98DZ Removal of Intraluminal Device from Ureter, Via Natural or Artificial Opening Endoscopic (ICD-10-PCS; principal; 2016-05-26 14:55)
DX: N20.0 Calculus of kidney (principal); I10 Essential (primary) hypertension; E66.01 Morbid (severe) obesity due to excess calories; Z68.41 Body mass index [BMI] 40.0-44.9, adult

== ENCOUNTER 2016-11-12 15:32 | Emergency (ER) | payer BC, OTHER ==
[2016-11-12 16:05] LABS: Hemoglobin 14.3 gm/dL (13.5-18.0); Mean Cell Volume 89.5 fl (78-100); Mean Corpuscular Hemoglobin 31.2 pg (27-31); Mean Corpuscular Hgb Conc 34.9 g/dl (32-36); Mean Platelet Volume 10.5 fl (6.0-9.5); Neutrophil # 2.3 K/mm3 (1.3-6.0); Neutrophil % 49.5 % (42-75.0); Platelet Count 224 K/mm3 (150-450); Red Blood Count 4.58 M/mm3 (4.7-6.0); Red Cell Distribution Width 12.3 % (11.5-14.0); White Blood Count 4.6 K/mm3 (4.0-10.5)
[2016-11-12 16:14] LABS: Urine Appearance Clear; Urine Color Yellow
[2016-11-12 16:15] LABS: Urine Bacteria None Seen; Urine Bilirubin Negative (NEGATIVE); Urine Blood Negative /ul (NEGATIVE); Urine Ketone Negative (NEGATIVE); Urine Nitrite Negative (NEGATIVE); Urine Protein Negative (NEGATIVE); Urine RBC None Seen /hpf (0-5); Urine Urobilinogen Normal (NORMAL); Urine WBC 0-5 /hpf (0-5)
[2016-11-12] MEDS ORDERED: KETOROLAC TROMETHAMINE 60 MG/2 ML VIAL IM ONE ×2 (16:16→16:23)
[2016-11-12] MEDS ORDERED: diphenhydrAMINE HCL 50 MG/ML VIAL IM ONE (16:16)
[2016-11-12 16:17] LABS: INR 0.96 INR (0.90-1.10); Partial Thrombolplastin Time 26.4 Seconds (24-32)
[2016-11-12 16:23] LABS: Anion Gap 11.7 mmol/L (6.8-13.8); BUN/Creatinine Ratio 9.6 (9.0-21.6); Bilirubin, Total 0.4 mg/dL (0.0-1.1); Ca. Corrected For Albumin 8.3 mg/dL (8.4-10.2); Calcium * 8.6 mg/dL (7.9-10.9); Carbon Dioxide 30.7 mmol/L (24-32.6); Potassium 3.4 mmol/L (3.4-4.6); Total Protein 7.2 gm/dL (6.2-8.2)
[2016-11-12] MEDS ORDERED: diphenhydrAMINE HCL 50 MG/ML VIAL ONE (16:23)
[2016-11-12 16:24] LABS: Troponin I 0.031 ng/ml (0.00-0.10)
[2016-11-12] MEDS ORDERED: hydrALAZINE HCL 20 MG/ML VIAL IV ONE (16:28)
[2016-11-12] MEDS ORDERED: hydrALAZINE HCL 20 MG/ML VIAL ONE (16:54)
--- NOTE | 2016-11-12 16:54 | ERNOTE ---
Medical Problem HPI - Narrative Date of Service: 11/12/16 - General Chief Complaint: General Assessment Time Seen by Provider: 11/12/16 15:38 Source: patient Exam Limitations: no limitations - Immun/Allergies/Home Medications Immunizations: IMMUNIZATION HX Immunizations Up to Date No History of Influenza Vaccine Yes Hx Pneumococcal Vaccination No Allergies/Adverse Reactions: Allergies amlodipine besylate [From [facility]] Allergy (Mild, Verified 11/12/16 15:41) EDEMA Iodinated Contrast- Oral and IV Dye [Iodinated Contrast Media - IV Dye] Allergy (Mild, Verified 11/12/16 15:41) SWELLING shellfish derived Allergy (Mild, Verified 11/12/16 15:41) SWELLING Home Medications: HOME MEDICATIONS Labetalol HCl [Trandate] 600 mg PO DAILY 06/24/14 [Last Taken 05/26/16 06:00] Clonidine HCl [Catapres] 0.2 mg PO BID 04/11/16 [Last Taken 05/26/16 06:00] Spironolactone [Aldactone] 25 mg PO DAILY #30 tablet 04/12/16 [Last Taken 08:00] Aspirin [Aspirin Enteric Coated] 81 mg PO DAILY 05/18/16 [Last Taken Unknown] Losartan/Hydrochlorothiazide [Hyzaar 100-25 Tablet] 1 each PO DAILY 05/18/16 [ Last Taken 05/26/16 06:00] Sertraline HCl [Zoloft] 50 mg PO DAILY 11/12/16 [Last Taken Unknown] Spironolactone [Aldactone] 25 mg PO DAILY 11/12/16 [Last Taken Unknown] Zaleplon [Sonata] 10 mg PO HS 11/12/16 [Last Taken Unknown] clonazePAM [Klonopin] 0.5 mg PO HS 11/12/16 [Last Taken Unknown] - History of Present History Narrative: Pt. comes in with c/o R facial and hand numbness that started an hour ago. Pt. states that his face is improved but his hand still has decreased sensation. Pt. has a hx of heart disease and has occasionally had intermittent hand numbness in the past but never had a diagnosis or imaging of his brain in the past. Pt. denies any CP, NVD, fever, but states that he has a mild headache today. Review of Systems - Review of Systems Constitutional: Present: no symptoms reported. Absent: recent illness, fever, chills, weakness, fatigue, malaise EYE: Present: no symptoms reported ENT: Present: no symptoms reported Respiratory: Present: no symptoms reported. Absent: shortness of breath, cough , wheezing Cardiology: Present: no symptoms reported. Absent: chest pain, palpitations, edema Gastrointestinal/Abdominal: Present: no symptoms reported. Absent: nausea, vomiting, diarrhea Genitourinary: Present: no symptoms reported Musculoskeletal: Present: no symptoms reported Skin: Present: no symptoms reported Neurological: Present: headache, weakness - heavy feeling arm, numbness, tingling. Absent: anxiety, depressed, dizziness/light-headedness All Other Systems: All systems neg except as marked - Patient's Past Medical History Patient History - Medical: Alcohol Abuse, Anxiety, Depression, GERD, Kidney stone, Obesity, Other Patient History - Cardiac/Respiratory: Hypertension, CPAP/BiPAP Home Use, Sleep Apnea Patient History - Cancer: No Hx of Cancer Patient History - Surgical Procedures: Other Patient History - Other: None - Family History Mother Family History - Medical: , History Unknown Family History - Cardiac/Respiratory: History Unknown Family History - Cancer: History Unknown Father Family History - Medical: , History Unknown Family History - Cardiac/Respiratory: History Unknown Family History - Cancer: History Unknown - Social History Living Situations: home Abuse History: No History of abuse Psych History: Hx of Anxiety, Hx of Depression, Current tx/ever been on anti- depressants or anti-anxiety meds Does anyone smoke in the home?: Yes Smoking Status: Current every day smoker Have you smoked in the past 12 months: Yes Patient requests Smoking Cessation Consult: No Initiate information on Smoking Cessation: No Alcohol Use: heavy Drug Use: none - Immunizations Immunizations Up to Date: No Hx Pneumococcal Vaccination: No History of Influenza Vaccine: Yes Physical Exam - Physical Exam General Appearance: Present: wd/wn, alert, no apparent distress Head Exam: Present: normal inspection, no evidence of injury Eye Exam: Normal inspection: bilateral, PERRL: bilateral, EOMI: bilateral Ears, Nose, Throat: Present: normal ENT inspection, normal pharynx Neck: Present: normal inspection, nontender. Absent: lymphadenopathy (R), lymphadenopathy (L) Respiratory: Present: no respiratory distress, normal breath sounds, no accessory muscle use, chest nontender, lungs clear Cardiovascular/Chest: Present: regular rate, rhythm, no murmur, normal peripheral pulses Back Exam: Present: normal inspection Extremity Exam: Present: normal inspection Neurological Exam: Present: alert, oriented, normal mood/affect, facial droop - mild R, other - R 3rd and 4th fingers decreased sensation not numbness. Absent : motor weakness Skin Exam: Present: normal color, warm/dry. Absent: pallor, skin rash ED Progress - Date and Time Seen: Date and Time: 11/12/16 16:10 Pt. facial numbness resolved at this time and symptoms quickly improving. Discussed with Dr Cuellar and he recommends consulting neurology for guidance. 11/12/16 16:[address] Boss at [facility] and he recommends pt. to be transferred for an acute CVA and MRI cannot be delayed until tomorrow and pt. cannot be discharged until evaluated by stroke center, but does not recommend any anticoagulation treatment at this time. Dr Cuellar in agreement with plan. 11/12/16 16:43 Discussed with pt. and he is agreeable to going to [facility] by ambulance. 11/12/16 16:52 - Results and Orders Patient's Lab Results:: I have reviewed the patient's lab results. - Vital Signs Patient's Vital Signs:: I have reviewed the patient's vital signs. Vital Signs: Vital Signs 11/12/16 15:34 Temperature 36.7 C Pulse Rate 67 Respiratory 14 Rate Blood Pressure 174/115 O2 Sat by Pulse 97 Oximetry - EKG EKG: NSR, RBBB, other - no acute changes EKG read: Reviewed by me EKG Comments: Interp by Dr Cuellar - CT/Ultrasound CT/Ultrasound Narrative: CT discussed with Radiologist and is normal and there is a deep sulci on the left on image 21 that we believe is normal for pt. - Progress/Reassessment Chief Complaint: General Assessment Progress:: Improved Departure - Departure Clinical Impression: Right sided weakness TIA (transient ischemic attack) Qualifiers: Transient cerebral ischemia type: other Qualified Code(s): G45.8 - Other transient cerebral ischemic attacks and related syndromes Disposition: [facility] Condition: Good Referrals: Amy Montgomery MD [Primary Care Provider] -
[2016-11-12 17:11] VITALS: BP 167/96
== END 2016-11-12 17:20 | disposition short-term general hospital (02) ==
LOC: ER 15:32
DX: G45.8 Other transient cerebral ischemic attacks and related syndromes (principal); R53.1 Weakness; F17.200 Nicotine dependence, unspecified, uncomplicated; I10 Essential (primary) hypertension; F41.9 Anxiety disorder, unspecified

== ENCOUNTER 2016-12-21 18:30 | Emergency (ER) | payer BC, OTHER ==
--- NOTE | 2016-12-21 18:49 | ERNOTE ---
Neuro HPI ER Record Date of Service: 12/21/16 Presenting Symptoms: parasthesia Time Seen by Provider: 12/21/16 18:39 Source: patient Exam Limitations: no limitations Immunizations: IMMUNIZATION HX Immunizations Up to Date No History of Influenza Vaccine Yes Hx Pneumococcal Vaccination No Allergies/Adverse Reactions: Allergies Allergy/AdvReac Type Severity Reaction Status Date / Time amlodipine besylate Allergy Mild EDEMA Verified 11/12/16 15:41 [[facility]] Iodinated Contrast- Oral and Allergy Mild SWELLING Verified 11/12/16 15:41 IV Dye [Iodinated Contrast Media - IV Dye] shellfish derived Allergy Mild SWELLING Verified 11/12/16 15:41 Home Medications: HOME MEDICATIONS Labetalol HCl [Trandate] 600 mg PO DAILY 06/24/14 [Last Taken 05/26/16 06:00] Clonidine HCl [Catapres] 0.2 mg PO BID 04/11/16 [Last Taken 05/26/16 06:00] Aspirin [Aspirin Enteric Coated] 81 mg PO DAILY 05/18/16 [Last Taken Unknown] Sertraline HCl [Zoloft] 50 mg PO DAILY 11/12/16 [Last Taken Unknown] Spironolactone [Aldactone] 25 mg PO DAILY 11/12/16 [Last Taken Unknown] Zaleplon [Sonata] 10 mg PO HS 11/12/16 [Last Taken Unknown] clonazePAM [Klonopin] 0.5 mg PO HS 11/12/16 [Last Taken Unknown] Aspirin [Aspirin EC] 325 mg PO DAILY 12/21/16 [Last Taken Unknown] Atorvastatin Calcium [Lipitor] 40 mg PO HS 12/21/16 [Last Taken Unknown] Losartan/Hydrochlorothiazide [Hyzaar 100-25 Tablet] 1 each PO DAILY 12/21/16 [ Last Taken Unknown] NIFEdipine [Procardia Xl] 30 mg PO DAILY 12/21/16 [Last Taken Unknown] - History of Present Illness Narrative: Pt. comes in with c/o R facial numbness intermittently for 6 hours. Pt. denies any SOB, CP, NVD, fever, recent injury but was seen a month ago for CVA like symptoms and was transferred to [facility] and was found to have L temporal sub acute and acute infarcts. Pt. states that symptoms last for 2-10 minutes per episode and resolve spontaneously. Pt. denies any weakness at this time. Review of Systems - Review of Systems Constitutional: Present: no symptoms reported. Absent: recent illness, fever, chills, weakness, fatigue, malaise EYE: Present: no symptoms reported ENT: Present: no symptoms reported Respiratory: Present: no symptoms reported. Absent: shortness of breath, cough , wheezing Cardiology: Present: no symptoms reported. Absent: chest pain, palpitations, edema Gastrointestinal/Abdominal: Present: no symptoms reported. Absent: nausea, vomiting, diarrhea Genitourinary: Present: no symptoms reported Musculoskeletal: Present: no symptoms reported. Absent: back pain, joint pain Skin: Present: no symptoms reported Neurological: Present: numbness - R face All Other Systems: All systems neg except as marked - Patient's Past Medical History Patient History - Medical: Alcohol Abuse, Anxiety, Depression, GERD, Kidney stone, Obesity Patient History - Cardiac/Respiratory: CVA/Stroke, Hypertension, CPAP/BiPAP Home Use, Sleep Apnea Patient History - Cancer: No Hx of Cancer Patient History - Surgical Procedures: Other Patient History - Other: None - Family History Mother Family History - Medical: , History Unknown Family History - Cardiac/Respiratory: History Unknown Family History - Cancer: History Unknown Father Family History - Medical: , History Unknown Family History - Cardiac/Respiratory: History Unknown Family History - Cancer: History Unknown - Social History Living Situations: home Abuse History: No History of abuse Psych History: Hx of Anxiety, Hx of Depression, Current tx/ever been on anti- depressants or anti-anxiety meds Does anyone smoke in the home?: Yes Alcohol Use: heavy Drug Use: none - Immunizations Immunizations Up to Date: No Hx Pneumococcal Vaccination: No History of Influenza Vaccine: Yes Physical Exam - Physical Exam General Appearance: Present: wd/wn, alert, no apparent distress Head Exam: Present: normal inspection, no evidence of injury Eye Exam: Normal inspection: bilateral, PERRL: bilateral, EOMI: bilateral Ears, Nose, Throat: Present: normal ENT inspection, normal pharynx Neck: Present: normal inspection, nontender. Absent: lymphadenopathy (R), lymphadenopathy (L) Respiratory: Present: no respiratory distress, normal breath sounds, no accessory muscle use, chest nontender, lungs clear Cardiovascular/Chest: Present: regular rate, rhythm, no murmur, normal peripheral pulses Back Exam: Present: normal inspection, normal range of motion, no CVA tenderness , no vertebral tenderness Extremity Exam: Present: normal inspection, non-tender, normal range of motion, no edema Neurological Exam: Present: alert, oriented, normal mood/affect, cartridge assembler II-XII nml as tested - trigeminal numbness R. Absent: normal cerebellar test, facial droop Skin Exam: Present: normal color, warm/dry. Absent: pallor, skin rash Riana Coma Scale - Assess Eye Opening: Spontaneous Motor: Obeys Commands Verbal: Oriented - Total Coma Scale Total: 15 Initial Stroke Assessment - Date/Time of assessment Stroke Scale Date: 12/21/16 Stroke Scale Time: 18:46 - NIH Stroke Scale Level of Consciousness: Alert LOC Questions (Year and Age): Answers both correctly LOC Commands (open/close eyes/fist): Performs both correctly Lateral Gaze Paresis: None Visual Field Loss: No visual loss Facial Palsy: Normal movement Right Arm Motor (10 sec hold): No drift Left Arm Motor (10 sec hold): No drift Right Leg Motor (5 sec hold): No drift Left Leg Motor (5 sec hold): No drift Limb Ataxia (finger/nose heel/matre): Absent Sensory Loss (pinprick arms/legs/face): Severe to total loss - R face on cheek Language Aphasia (description/naming/reading): No aphasia; normal Dysarthria (speech clarity): Normal articulation Neglect Inattention (visual/tactile/auditory/spatial/person): No neglect Initial Stroke Scale Score:: 2 Stroke Inclusion/Exclusion Cri - A Inclusion (Must answer Yes to meet): no - Inclusion Questions: Yes Onset of symptoms <3 1/2 hours of admission to ETC: No - Exclusion Questions: Major symptoms rapidly improving: Yes Seizure at onset of stroke: No SBP>185; DBP>110 at time treatment is to begin: No Patient received Heparin or Coumadin within 48 hours: No Patient has elevated PTT or Protime/INR: No Stroke, head injury, major surgery, serious trauma in 3 mon.: Yes Previous intracranial hemmorhage: No Recent MO: No Known AV malformation or aneurysm: No Blood glucose <50mg/dl or >400mg/dl: No NIHSS Score <4 or >22 performed by physician: No - Total NIHSS Score Score:: 2 ED Progress - Date and Time Seen: Date and Time: 09/28/17 19:[address] Glass at [facility] and they would like pt. transported back to [facility] for furtherimaging as symptoms are not completely resolving and he feels that this cannot be delatyed until tomorrow and that this needs to be investigated by the neurology/ neurosurgery stroke team at [facility] emergently. - Results and Orders Patient's Lab Results:: I have reviewed the patient's lab results. - Vital Signs Patient's Vital Signs:: I have reviewed the patient's vital signs. - EKG EKG: NSR, nonspecific ST T wave changes, other - poor r progression EKG read: Reviewed by me EKG Comments: Interp by Dr Prado - X-Ray X-Ray #1 X-Ray: chest Interpretation: Reviewed by me X-ray Comments: No acute cardiopulmonary process. - CT/Ultrasound CT/Ultrasound Narrative: CT head negative for hemorrhage or mass effects but old parietal lobe CVA appears stable Departure Clinical Impression: CVA (cerebral vascular accident) Qualifiers: CVA mechanism: unspecified Qualified Code(s): I63.9 - Cerebral infarction, unspecified - Departure Disposition: [facility] Condition: Fair Referrals: Amy Montgomery MD [Primary Care Provider] -
[2016-12-21 18:51] LABS: Hematocrit 36.3 % (42.0-52.0); Hemoglobin 12.4 gm/dL (13.5-18.0); Mean Cell Volume 90.3 fl (78-100); Mean Corpuscular Hemoglobin 30.8 pg (27-31); Mean Corpuscular Hgb Conc 34.2 g/dl (32-36); Mean Platelet Volume 10.7 fl (6.0-9.5); Neutrophil % 48.6 % (42-75.0); Platelet Count 212 K/mm3 (150-450); Red Blood Count 4.02 M/mm3 (4.7-6.0); Red Cell Distribution Width 12.3 % (11.5-14.0)
[2016-12-21 19:02] LABS: Prothrombin Time (Patient) 9.9 Seconds (9.4-11.4)
[2016-12-21 19:05] LABS: Anion Gap 10.8 mmol/L (6.8-13.8); Bilirubin, Total 0.4 mg/dL (0.0-1.1); Ca. Corrected For Albumin 8.2 mg/dL (8.4-10.2); Calcium * 8.5 mg/dL (7.9-10.9); Carbon Dioxide 31.3 mmol/L (24-32.6); INR 0.95 INR (0.90-1.10); Partial Thrombolplastin Time 25.9 Seconds (24-32); Potassium 3.1 mmol/L (3.4-4.6)
[2016-12-21] MEDS ORDERED: POTASSIUM CHLORIDE 20 MEQ TABLET.SA PO ONE (19:13)
[2016-12-21] MEDS ORDERED: POTASSIUM CHLORIDE 20 MEQ TABLET.SA ONE (19:20)
[2016-12-21 19:23] VITALS: BP 151/81
== END 2016-12-21 20:09 | disposition short-term general hospital (02) ==
LOC: ER 18:30
DX: I63.9 Cerebral infarction, unspecified (principal); K21.9 Gastro-esophageal reflux disease without esophagitis; Z86.73 Personal history of transient ischemic attack (TIA), and cerebral infarction without residual deficits; I10 Essential (primary) hypertension; F41.8 Other specified anxiety disorders

== ENCOUNTER 2017-04-20 11:08 | Emergency (ER) | payer BC, OTHER ==
[2017-04-20 11:58] LABS: Hematocrit 36.3 % (42.0-52.0); Hemoglobin 12.4 gm/dL (13.5-18.0); Mean Cell Volume 90.3 fl (78-100); Mean Corpuscular Hemoglobin 30.8 pg (27-31); Mean Corpuscular Hgb Conc 34.2 g/dl (32-36); Mean Platelet Volume 10.7 fl (6.0-9.5); Neutrophil # 2.4 K/mm3 (1.3-6.0); Neutrophil % 51.3 % (42-75.0); Platelet Count 224 K/mm3 (150-450); Red Blood Count 4.02 M/mm3 (4.7-6.0); Red Cell Distribution Width 12.9 % (11.5-14.0); White Blood Count 4.6 K/mm3 (4.0-10.5)
[2017-04-20 12:17] LABS: ALT 55 U/L (19-67); AST 23 U/L (0-48); Alkaline Phosphatase * 67 U/L (50-170); Anion Gap 10.3 mmol/L (6.8-13.8); BUN/Creatinine Ratio 12.6 (9.0-21.6); Bilirubin, Total 0.5 mg/dL (0.0-1.1); Blood Urea Nitrogen 18 mg/dL (6-23); Ca. Corrected For Albumin 8.1 mg/dL (8.4-10.2); Calcium * 8.4 mg/dL (7.9-10.9); Carbon Dioxide 31.6 mmol/L (24-32.6); Chloride 104 mmol/L (97-106); Glucose * 150 mg/dL (70-110); Potassium 2.9 mmol/L (3.4-4.6); Sodium 143 mmol/L (132-142); Total Protein 7.1 gm/dL (6.2-8.2)
[2017-04-20 12:19] LABS: Troponin I Less than 0.017 ng/ml (0.00-0.10)
[2017-04-20] MEDS ORDERED: POTASSIUM CHLORIDE 20 MEQ TABLET.SA PO ONE (12:42)
[2017-04-20] MEDS ORDERED: POTASSIUM CHLORIDE 20 MEQ TABLET.SA ONE (13:16)
--- NOTE | 2017-04-20 13:24 | ERNOTE ---
Medical Problem HPI - Narrative Date of Service: 04/20/17 - General Chief Complaint: General Assessment Time Seen by Provider: 04/20/17 11:37 Source: patient Exam Limitations: no limitations - Immun/Allergies/Home Medications Immunizations: IMMUNIZATION HX Immunizations Up to Date Yes History of Influenza Vaccine No Hx Pneumococcal Vaccination No Allergies/Adverse Reactions: Allergies amlodipine besylate [From Norvas] Allergy (Mild, Verified 11/12/16 15:41) EDEMA Iodinated Contrast- Oral and IV Dye [Iodinated Contrast Media - IV Dye] Allergy (Mild, Verified 11/12/16 15:41) SWELLING shellfish derived Allergy (Mild, Verified 11/12/16 15:41) SWELLING Home Medications: HOME MEDICATIONS Labetalol HCl [Trandate] 300 mg PO BID 06/24/14 [Last Taken 05/26/16 06:00] Clonidine HCl [Catapres] 0.2 mg PO BID 04/11/16 [Last Taken 05/26/16 06:00] Sertraline HCl [Zoloft] 50 mg PO DAILY 11/12/16 [Last Taken Unknown] Spironolactone [Aldactone] 25 mg PO DAILY 11/12/16 [Last Taken Unknown] clonazePAM [Klonopin] 0.25 mg PO HS 11/12/16 [Last Taken Unknown] Aspirin [Aspirin EC] 325 mg PO DAILY 12/21/16 [Last Taken Unknown] Atorvastatin Calcium [Lipitor] 40 mg PO HS 12/21/16 [Last Taken Unknown] Losartan/Hydrochlorothiazide [Hyzaar 100-25 Tablet] 1 each PO DAILY 12/21/16 [ Last Taken Unknown] NIFEdipine [Procardia Xl] 30 mg PO DAILY 12/21/16 [Last Taken Unknown] Potassium Chloride [K-Dur] 20 meq PO BID #6 tab 04/20/17 [Last Taken Unknown] Zaleplon [Sonata] 10 mg PO HS 04/20/17 [Last Taken Unknown] - History of Present History Narrative: Patient presents to the ED with several weeks of off and on pins and needles sensation in both of his hands. This has been going on in an off and on fashion for well over a month. This will come and go, sometimes brief, other times will last for hours. Nothing seems to make it better or worse. Sometimes it is worse on the left, other times worse on the right. Right now he feels like his Sx are resolved. No lower extremity Sx. No weakness at any time. No TIRADO or vision changes. Relates he is taking his medications as directe.d No CP or SOB. States he has felt tired for the last couple of days. Nothing seem to clearly bring this on. No neck pain or neck injury Timing: intermittent Severity: moderate Modifying Factors - (Improves): Present: other - nothing Modifying Factors - (Worsens): Present: other - nothing Review of Systems - Review of Systems Constitutional: Absent: fever EYE: Absent: vision changes ENT: Absent: sore throat Respiratory: Absent: shortness of breath Cardiology: Absent: chest pain Gastrointestinal/Abdominal: Absent: abdominal pain Genitourinary: Absent: dysuria Musculoskeletal: Absent: neck pain Skin: Absent: rash Neurological: Present: See HPI. Absent: weakness - Patient's Past Medical History Patient History - Medical: Alcohol Abuse, Anxiety, Depression, GERD, Kidney stone, Obesity Patient History - Cardiac/Respiratory: CVA/Stroke, Hypertension, CPAP/BiPAP Home Use, Sleep Apnea Patient History - Cancer: No Hx of Cancer Patient History - Surgical Procedures: Other Patient History - Other: None - Family History Mother Family History - Medical: , History Unknown Family History - Cardiac/Respiratory: History Unknown Family History - Cancer: History Unknown Father Family History - Medical: , History Unknown Family History - Cardiac/Respiratory: History Unknown Family History - Cancer: History Unknown - Social History Living Situations: significant other Abuse History: No History of abuse Psych History: Hx of Anxiety, Hx of Depression, Current tx/ever been on anti- depressants or anti-anxiety meds Smoking Status: Former smoker Have you smoked in the past 12 months: No Alcohol Use: heavy - Immunizations Immunizations Up to Date: Yes Hx Pneumococcal Vaccination: No History of Influenza Vaccine: No Physical Exam - Physical Exam General Appearance: Present: alert, no apparent distress Head Exam: Present: normal inspection, no evidence of injury Eye Exam: Normal inspection: bilateral, PERRL: bilateral Ears, Nose, Throat: Present: normal ENT inspection Neck: Present: normal inspection Respiratory: Present: no respiratory distress, normal breath sounds, no accessory muscle use, lungs clear Cardiovascular/Chest: Present: regular rate, rhythm, normal peripheral pulses Gastrointestinal/Abdominal: Present: normal bowel sounds, nontender, nondistended, soft Back Exam: Present: normal range of motion, no CVA tenderness Extremity Exam: Present: normal inspection, non-tender, normal range of motion Neurological Exam: Present: alert, normal mood/affect, no motor/sensory deficits , brazer induction II-XII nml as tested, normal cerebellar test, other - NIH - 0. LT sensation intact bilaterally. Absent: facial droop, motor weakness Skin Exam: Present: normal color, warm/dry ED Progress - Results and Orders Patient's Lab Results:: I have reviewed the patient's lab results. - Vital Signs Patient's Vital Signs:: I have reviewed the patient's vital signs. Vital Signs: Vital Signs 04/20/17 04/20/17 11:15 11:25 Temperature 36.8 C 36.8 C Pulse Rate 65 65 Respiratory 16 16 Rate Blood Pressure 171/75 171/75 O2 Sat by Pulse 98 98 Oximetry - EKG EKG: NSR EKG read: Interp. by me EKG Comments: Sinus bradycardia. Non-specific ST/T wave changes, no clear evidence of STEMI - CT/Ultrasound CT/Ultrasound Narrative: I reviewed official radiology report of HCT. - Progress/Reassessment Chief Complaint: General Assessment Progress Note-Subjective: 04/20/17 13:18 Patient with intermittent paresthesias. No clear etiology. BP is elevated today but not in a pattern c/w hypertensive urgency/emergency. No findings of stroke, NIH - 0. The hypokalemia may have something to do with this. Treated here and will need outpatient K+ therapy and close f/u. He wants to go home. I discussed warning signs and reasons to return as well as the need for close f/ u. No suggestion of stroke, infectious process, ACS or other clear acute life or limb threat. Departure Clinical Impression: Paresthesia, Hypokalemia - Departure Disposition: Home self-care Condition: Stable Instructions: Paresthesia Additional Instructions: Take potassium as directed for 3 days. Follow-up Sunday with your doctor for a re-check. Return here for weakness, headache or if your condition worsens or changes in any way. Referrals: Amy Montgomery MD [Primary Care Provider] - Prescriptions: Potassium Chloride [K-Dur] 20 meq PO BID #6 tab
[2017-04-20 13:44] VITALS: BP 153/79
== END 2017-04-20 13:43 | disposition home or self-care (01) ==
LOC: ER 11:08
DX: R20.2 Paresthesia of skin (principal); Z87.442 Personal history of urinary calculi; Z99.81 Dependence on supplemental oxygen; Z87.891 Personal history of nicotine dependence; E87.6 Hypokalemia; I10 Essential (primary) hypertension; F41.9 Anxiety disorder, unspecified

== ENCOUNTER 2017-05-23 04:27 | Emergency (ER) | payer BC, OTHER ==
--- NOTE | 2017-05-23 04:54 | ERNOTE ---
Medical Problem HPI - General Chief Complaint: General Assessment Time Seen by Provider: 05/23/17 04:48 Source: patient Exam Limitations: no limitations - Immun/Allergies/Home Medications Immunizations: IMMUNIZATION HX Immunizations Up to Date Yes History of Influenza Vaccine No Hx Pneumococcal Vaccination No Allergies/Adverse Reactions: Allergies amlodipine besylate [From Norvasc] Allergy (Mild, Verified 05/23/17 04:41) EDEMA Iodinated Contrast- Oral and IV Dye [Iodinated Contrast Media - IV Dye] Allergy (Mild, Verified 05/23/17 04:41) SWELLING shellfish derived Allergy (Mild, Verified 05/23/17 04:41) SWELLING Home Medications: HOME MEDICATIONS Labetalol HCl [Trandate] 300 mg PO BID 06/24/14 [Last Taken 05/26/16 06:00] Clonidine HCl [Catapres] 0.2 mg PO BID 04/11/16 [Last Taken 05/26/16 06:00] Sertraline HCl [Zoloft] 50 mg PO DAILY 11/12/16 [Last Taken Unknown] Spironolactone [Aldactone] 25 mg PO DAILY 11/12/16 [Last Taken Unknown] clonazePAM [Klonopin] 0.25 mg PO HS 11/12/16 [Last Taken Unknown] Aspirin [Aspirin EC] 325 mg PO DAILY 12/21/16 [Last Taken Unknown] Atorvastatin Calcium [Lipitor] 40 mg PO HS 12/21/16 [Last Taken Unknown] Losartan/Hydrochlorothiazide [Hyzaar 100-25 Tablet] 1 each PO DAILY 12/21/16 [ Last Taken Unknown] NIFEdipine [Procardia Xl] 30 mg PO DAILY 12/21/16 [Last Taken Unknown] Potassium Chloride [K-Dur] 20 meq PO BID #6 tab 04/20/17 [Last Taken Unknown] Zaleplon [Sonata] 10 mg PO HS 04/20/17 [Last Taken Unknown] - History of Present History Narrative: pt states he has had tingling of his left side intermittently for a few days Timing: getting worse, intermittent Severity: moderate Review of Systems - Review of Systems Constitutional: Absent: recent illness EYE: Absent: vision changes ENT: Present: no symptoms reported Respiratory: Absent: shortness of breath Cardiology: Absent: chest pain Gastrointestinal/Abdominal: Absent: nausea, vomiting Genitourinary: Present: no symptoms reported Musculoskeletal: Present: no symptoms reported Skin: Absent: rash Neurological: Present: See HPI Endocrine: Present: no symptoms reported Hematologic/Lymphatic: Present: no symptoms reported Psych: Present: no symptoms reported - Patient's Past Medical History Patient History - Medical: Alcohol Abuse, Anxiety, Depression, Kidney stone, Obesity Patient History - Cardiac/Respiratory: CVA/Stroke, Hypertension, CPAP/BiPAP Home Use, Sleep Apnea Patient History - Cancer: No Hx of Cancer Patient History - Surgical Procedures: No surgical history Patient History - Other: None - Family History Mother Family History - Medical: , History Unknown Family History - Cardiac/Respiratory: History Unknown Family History - Cancer: History Unknown Father Family History - Medical: , History Unknown Family History - Cardiac/Respiratory: History Unknown Family History - Cancer: History Unknown - Social History Living Situations: home Abuse History: No History of abuse Psych History: Hx of Anxiety, Hx of Depression, Current tx/ever been on anti- depressants or anti-anxiety meds Smoking Status: Former smoker Alcohol Use: occasionally - Immunizations Immunizations Up to Date: Yes Hx Pneumococcal Vaccination: No History of Influenza Vaccine: No Physical Exam - Physical Exam General Appearance: Present: wd/wn, alert, no apparent distress Head Exam: Present: normal inspection, no evidence of injury Eye Exam: Normal inspection: bilateral, PERRL: bilateral, EOMI: bilateral Ears, Nose, Throat: Present: normal ENT inspection Neck: Present: normal inspection, nontender Respiratory: Present: no respiratory distress, normal breath sounds, lungs clear Cardiovascular/Chest: Present: regular rate, rhythm, no murmur, normal peripheral pulses Gastrointestinal/Abdominal: Present: normal bowel sounds, nontender, nondistended, soft Back Exam: Present: normal inspection, normal range of motion Extremity Exam: Present: normal inspection, normal range of motion, no edema Neurological Exam: Present: alert, oriented, c application developer II-XII nml as tested Skin Exam: Present: normal color, warm/dry ED Progress - Results and Orders Patient's Lab Results:: I have reviewed the patient's lab results. Results and Orders: Laboratory Tests 05/23/17 05/23/17 05/23/17 04:57 04:57 04:57 WBC 4.4 Hgb 12.2 L Hct 35.2 L ESR 8 Sodium 143 H Potassium 2.9 L Chloride 104 Carbon Dioxide 30.9 Anion Gap 11.0 BUN 17 Creatinine 1.42 H BUN/Creatinine Ratio 12.0 Random Glucose 209 H Calcium 8.1 Total Bilirubin 0.5 AST 25 ALT 61 Alkaline Phosphatase 77 Total Protein 6.6 Albumin 3.7 - Vital Signs Patient's Vital Signs:: I have reviewed the patient's vital signs. Vital Signs: Vital Signs 05/23/17 04:30 Temperature 36.5 C Pulse Rate 62 Respiratory 15 Rate Blood Pressure 160/86 O2 Sat by Pulse 99 Oximetry - EKG EKG: nonspecific ST T wave changes - with sinus bradycardia EKG read: Interp. by me - CT/Ultrasound CT/Ultrasound Narrative: CT head without contrast. Exam compared to most recent prior available relevant exams. No acute intracranial pathology. encephalomalacia consistent with remote infarctions sulcal widening and parenchymal volume loss appropriate for age atheromatous disease present. - Progress/Reassessment Chief Complaint: General Assessment Departure Clinical Impression: Hypokalemia, Facial paresthesia - Departure Disposition: Home Follow Up Needed Condition: Good Instructions: Hypokalemia, Potassium Content of Foods Additional Instructions: Take an additional potassium each morning for 3 days. See your regular doctor in a few days and have your potassium rechecked. Referrals: Amy Montgomery MD [Primary Care Provider] -
[2017-05-23 04:58] LABS: Hematocrit 35.2 % (42.0-52.0); Hemoglobin 12.2 gm/dL (13.5-18.0); Mean Cell Volume 88.4 fl (78-100); Mean Corpuscular Hemoglobin 30.7 pg (27-31); Mean Corpuscular Hgb Conc 34.7 g/dl (32-36); Mean Platelet Volume 10.3 fl (6.0-9.5); Neutrophil # 2.1 K/mm3 (1.3-6.0); Neutrophil % 48.2 % (42-75.0); Platelet Count 216 K/mm3 (150-450); Red Blood Count 3.98 M/mm3 (4.7-6.0); Red Cell Distribution Width 12.8 % (11.5-14.0); White Blood Count 4.4 K/mm3 (4.0-10.5)
[2017-05-23 05:12] LABS: Albumin * 3.7 gm/dl (3.4-5.0); Bilirubin, Total 0.5 mg/dL (0.0-1.1); Calcium * 8.1 mg/dL (7.9-10.9); Carbon Dioxide 30.9 mmol/L (24-32.6); Potassium 2.9 mmol/L (3.4-4.6); Total Protein 6.6 gm/dL (6.2-8.2)
[2017-05-23] MEDS ORDERED: POTASSIUM CHLORIDE 20 MEQ TABLET.SA PO ONE (05:42)
[2017-05-23] MEDS ORDERED: POTASSIUM CHLORIDE 20 MEQ TABLET.SA ONE (05:45)
[2017-05-23 07:33] VITALS: BP 135/78
== END 2017-05-23 06:45 | disposition home or self-care (01) ==
LOC: ER 04:27
DX: E87.6 Hypokalemia (principal); R20.9 Unspecified disturbances of skin sensation; Z87.442 Personal history of urinary calculi; Z87.891 Personal history of nicotine dependence

== ENCOUNTER 2018-07-31 17:51 | Observation (INO) ==
[2018-07-31] MEDS ORDERED: POTASSIUM CHLORIDE 20 MEQ TABLET.SA PO ONE ×2 (18:08→18:46)
--- NOTE | 2018-07-31 18:11 | ERNOTE ---
Medical Problem HPI - General Chief Complaint: General Assessment Time Seen by Provider: 07/31/18 18:04 Source: patient Exam Limitations: no limitations - Immun/Allergies/Home Medications Immunizations: IMMUNIZATION HX Immunizations Up to Date Yes History of Influenza Vaccine No Hx Pneumococcal Vaccination No Allergies/Adverse Reactions: Allergies amlodipine besylate [From Norvasc] Allergy (Mild, Verified 07/31/18 17:59) EDEMA Iodinated Contrast- Oral and IV Dye [Iodinated Contrast Media - IV Dye] Allergy (Mild, Verified 07/31/18 17:59) SWELLING shellfish derived Allergy (Mild, Verified 07/31/18 17:59) SWELLING Home Medications: HOME MEDICATIONS Clonidine HCl [Catapres] 0.2 mg PO BID 04/11/16 [Last Taken 05/26/16 06:00] Aspirin [Aspirin EC] 325 mg PO DAILY 12/21/16 [Last Taken Unknown] Atorvastatin Calcium [Lipitor] 40 mg PO HS 12/21/16 [Last Taken Unknown] Labetalol HCl 300 mg PO BID 02/19/18 [Last Taken Unknown] losartan 100 mg-hydrochlorothiazide 25 mg tablet 1 tab PO DAILY #30 tab 03/20/18 [Last Taken Unknown] spironolactone 25 mg tablet 25 mg PO DAILY #30 tab 03/20/18 [Last Taken Unknown] sertraline 100 mg tablet 100 mg PO DAILY #30 tab 03/22/18 [Last Taken Unknown] nifedipine ER 30 mg tablet,extended release 30 mg PO DAILY #30 tab 04/18/18 [Last Taken Unknown] clonazepam 0.5 mg tablet 0.5 mg PO HS PRN #30 tab 06/27/18 [Last Taken Unknown] trazodone 50 mg tablet See Rx Instructions PO HS PRN #60 tab 07/26/18 [Last Taken Unknown] Potassium Chloride [K-Dur] 188 mg PO DAILY 07/31/18 [Last Taken Unknown] - History of Present History Narrative: Patient has no chief complaint but he was found on routine laboratory examination today to have a potassium of 2.4. He was seen by his internal medicine doctor for treatment and further evaluation. Timing: constant Review of Systems - Review of Systems Constitutional: Present: no symptoms reported EYE: Present: no symptoms reported ENT: Present: no symptoms reported Respiratory: Present: no symptoms reported Cardiology: Present: no symptoms reported Gastrointestinal/Abdominal: Present: no symptoms reported Genitourinary: Present: no symptoms reported Musculoskeletal: Present: no symptoms reported Skin: Present: no symptoms reported Neurological: Present: no symptoms reported Endocrine: Present: no symptoms reported Hematologic/Lymphatic: Present: no symptoms reported Psych: Present: no symptoms reported Medical History (Updated 07/31/18 @ 18:54 by Esau Villalobos DO) Abscess (Inactive) Onset Date: 04/24/10 Depression (Chronic) Onset Date: Unknown TIA (transient ischemic attack) (Inactive) Onset Date: Unknown CVA (cerebral vascular accident) (Inactive) Onset Date: 11/22/10 Essential hypertension Onset Date: 2004 Generalized anxiety disorder Onset Date: Unknown Hyperlipidemia Onset Date: Unknown Sleep apnea Onset Date: 08/03/16 Chest pain Onset Date: 04/23/14 Surgical History: Surgical History (Updated 11/01/17 @ 14:58 by Melva Smith RN) H/O colonoscopy Onset Date: ~2007 3-4 polyps removed History of incision and drainage Onset Date: 04/25/10 fistulotomy Onset Date: 07/01/14 Dr. Lewis hemorrhoidal banding Onset Date: ~2007 Family History: Family History (Updated 11/01/17 @ 14:59 by Melva Smith RN) Brother Cancer colon cancer Brother Cancer colon cancer Father Cancer Mother Cancer Social History: Preferred Language [place] Smoking Status Current every day smoker Have you smoked in the past 12 Yes months Abuse History No History of abuse Psych History Hx of Anxiety,Hx of Depression,Currently on Meds Alcohol Use occasionally Drug Use none (Last Updated 07/31/18 @ 15:52 by Amy Montgomery MD) No Social History Section defined Physical Exam - Physical Exam General Appearance: Present: wd/wn, alert, no apparent distress Eye Exam: Normal inspection: bilateral, PERRL: bilateral Ears, Nose, Throat: Present: normal ENT inspection, H, normal pharynx Neck: Present: normal inspection, nontender Respiratory: Present: no respiratory distress, normal breath sounds, no accessory muscle use, chest nontender, lungs clear Cardiovascular/Chest: Present: regular rate, rhythm, no murmur, normal peripheral pulses Gastrointestinal/Abdominal: Present: normal bowel sounds, nontender, nondistended, soft, no organomegaly Rectal Exam: Present: deferred Back Exam: Present: normal inspection, normal range of motion Extremity Exam: Present: normal inspection, non-tender, no edema, normal range of motion Neurological Exam: Present: alert, oriented, normal mood/affect Skin Exam: Present: normal color, warm/dry Lymphatic Exam: Present: no adenopathy Progress - Results and Orders Patient's Lab Results:: I have reviewed the patient's lab results. - Vital Signs Patient's Vital Signs:: I have reviewed the patient's vital signs. Vital Signs: Vital Signs 07/31/18 17:56 Temperature 36.7 C Pulse Rate 62 Respiratory Rate 21 H Blood Pressure 163/96 H O2 Sat by Pulse Oximetry 98 - Progress/Reassessment Chief Complaint: General Assessment Plan - Plan Plan: I strongly suggested that the patient be admitted so that we could do him a more proper stabilization of his potassium and, all the internal medicine doctor agreed, the patient refused to stay. We will try to give him 80 mEq orally and 20 and an IV over 2 hours. I will send him home with a prescription for 40 mEq of potassium 2 times a day for 3 days and he will need to have his potassium rechecked on Sunday. After the 3 days I will keep him on at least 20 mEq a day, in addition to what he is taking, and he will follow-up with Dr. Montgomery for any further ongoing care. Upon deeper reflection the patient realized that potassium at low could have life-threatening consequences. Patient agreed to spend the night so we can get his potassium back up into the normal range and his medications could be gone over to make sure were not having one they could be inducing potassium wasting. Departure Clinical Impression: Hypokalemia - Departure Disposition: Still a patient Condition: Fair
[2018-07-31 18:29] LABS: Anion Gap 10.9 mmol/L (6.8-13.8); BUN/Creatinine Ratio 12.9 (9.0-21.6); Calcium * 8.9 mg/dL (7.9-10.9); Carbon Dioxide 30.6 mmol/L (24-32.6); Estimated Creat Clear 71.2
[2018-07-31 18:35] LABS: Potassium 2.5 mmol/L (3.4-4.6)
[2018-07-31] MEDS: POTASSIUM CHLORIDE 20 MEQ in NORMAL SALINE 1,000 ML IV SCH ×2 (19:17→23:44)
--- NOTE | 2018-07-31 20:04 | HP ---
Chief Complaint - Chief Complaint Date of Service: 07/31/18 Time of Service: 19:50 Chief Complaint: Abnormal blood work History of Present Illness: 48-year-old male with a past medical history of CVA, depression, hypertension, anxiety, hyperlipidemia, sleep apnea presents with complaints of abnormal lab. He had seen his primary care physician in the office today for dry mouth and she did routine labs. His potassium was found to be 2.4. He was called at home and asked to come to the emergency department. In the ER he received 80 mEq of oral potassium and was started on providing manual equivalents 20 mEq of IV potassium. EKG showed nonspecific T wave abnormalities. Patient denied any chest pain shortness of breath, palpitations or other symptoms. He was admitted for observation. Medical History (Updated 07/31/18 @ 20:04 by Clarice Resendiz MD) Abscess (Inactive) Onset Date: 04/24/10 Depression (Chronic) Onset Date: Unknown TIA (transient ischemic attack) (Inactive) Onset Date: Unknown CVA (cerebral vascular accident) (Inactive) Onset Date: 11/22/10 Essential hypertension Onset Date: 2004 Generalized anxiety disorder Onset Date: Unknown Hyperlipidemia Onset Date: Unknown Sleep apnea Onset Date: 08/03/16 Chest pain Onset Date: 04/23/14 Surgical History: Surgical History (Updated 07/31/18 @ 20:04 by Clarice Resendiz MD) H/O colonoscopy Onset Date: ~2007 3-4 polyps removed History of incision and drainage Onset Date: 04/25/10 fistulotomy Onset Date: 07/01/14 Dr. Lewis hemorrhoidal banding Onset Date: ~2007 Family History: Family History (Updated 11/01/17 @ 14:59 by Melva Smith RN) Brother Cancer colon cancer Brother Cancer colon cancer Father Cancer Mother Cancer Social History: Preferred Language [place]une[place] Smoking Status Current every day smoker Have you smoked in the past 12 Yes months Abuse History No History of abuse Psych History Hx of Anxiety,Hx of Depression,Currently on Meds Alcohol Use occasionally Drug Use none (Last Updated 07/31/18 @ 15:52 by Amy Montgomery MD) No Social History Section defined Review Of Systems (GEN) - Review of Systems Generalized/Overall Review: Absent: Chills, Fever EENTM: Absent: Eye Pain, Ear Pain Respiratory: Absent: Shortness of Breath Cardiac: Absent: Chest Pain, Palpitations Abdominal: Absent: Abdominal Pain Musculoskeletal: Absent: Back Pain Endocrine: Present: Other - Dry mouth Misc: All systems neg except as marked Immunizations: IMMUNIZATION HX Immunizations Up to Date Yes History of Influenza Vaccine No Hx Pneumococcal Vaccination No Allergies/Adverse Reactions: Allergies Allergy/AdvReac Type Severity Reaction Status Date / Time amlodipine besylate Allergy Mild EDEMA Verified 07/31/18 17:59 [From [facility]] Iodinated Contrast- Oral and Allergy Mild SWELLING Verified 07/31/18 17:59 IV Dye [Iodinated Contrast Media - IV Dye] shellfish derived Allergy Mild SWELLING Verified 07/31/18 17:59 Home Medications: HOME MEDICATIONS Clonidine HCl [Catapres] 0.2 mg PO BID 04/11/16 [Last Taken 05/26/16 06:00] Aspirin [Aspirin EC] 325 mg PO DAILY 12/21/16 [Last Taken Unknown] Atorvastatin Calcium [Lipitor] 40 mg PO HS 12/21/16 [Last Taken Unknown] Labetalol HCl 300 mg PO BID 02/19/18 [Last Taken Unknown] losartan 100 mg-hydrochlorothiazide 25 mg tablet 1 tab PO DAILY #30 tab 03/20/18 [Last Taken Unknown] spironolactone 25 mg tablet 25 mg PO DAILY #30 tab 03/20/18 [Last Taken Unknown] sertraline 100 mg tablet 100 mg PO DAILY #30 tab 03/22/18 [Last Taken Unknown] nifedipine ER 30 mg tablet,extended release 30 mg PO DAILY #30 tab 04/18/18 [Last Taken Unknown] clonazepam 0.5 mg tablet 0.5 mg PO HS PRN #30 tab 06/27/18 [Last Taken Unknown] trazodone 50 mg tablet See Rx Instructions PO HS PRN #60 tab 07/26/18 [Last Taken Unknown] Potassium Chloride [K-Dur] 188 mg PO DAILY 07/31/18 [Last Taken Unknown] Exam - Exam Vital Signs: Vital Signs - Last Taken Temp 36.7 C 07/31/18 17:56 Pulse 69 07/31/18 19:21 Resp 18 07/31/18 19:21 BP 167/85 H 07/31/18 19:21 Pulse Ox 97 07/31/18 19:21 Constitutional: Present: Alert, Cooperative, Well developed, Well nourished, No distress, Middle aged ENT Exam: Present: hearing grossly normal, moist mucous membranes Eye Exam: bilateral eye: normal inspection Neck: Present: supple, normal inspection, trachea midline. Absent: lymphadenopathy (R), lymphadenopathy (L) Back Exam: Present: normal inspection, no CVA tenderness Respiratory: Present: lungs clear, no respiratory distress, no accessory muscle use, No wheezing. Absent: crackles, rhonchi Cardiovascular/Chest: Present: normal peripheral pulses, regular rate, rhythm, no edema, no murmur Peripheral Pulses: dorsalis-pedis (R): 1+, dorsalis-pedis (L): 1+ Abdomen: Present: Normal bowel sounds, soft, nontender, nondistended Extremity: Present: pedal edema - Trace bilateral lower extremity Skin Exam: Present: normal color, warm/dry Neurologic: Present: alert, normal mood/affect Appearance: Present: appropriate appearance, appropriate insight Eye contact: Present: cooperative, good eye contact Thoughts: Present: normal thought pattern, normal mood /affect Diagnostic Studies: Abnormal Lab Results 07/31/18 Range/Units 18:20 Potassium 2.5 L (3.4-4.6) mmol/L Laboratory Results Sodium 141 mmol/L (132-142) 07/31/18 18:20 141 mmol/L (130-142) 07/31/18 18:20 Potassium 2.5 mmol/L (3.4-4.6) L 07/31/18 18:20 Chloride 102 mmol/L (97-106) 07/31/18 18:20 Carbon Dioxide 30.6 mmol/L (24-32.6) 07/31/18 18:20 10.9 mmol/L (6.8-13.8) 07/31/18 18:20 BUN 16 mg/dL (6-23) 07/31/18 18:20 1.24 mg/dL (0.4-1.4) 07/31/18 18:20 Est GFR (Non-Af Amer) 80 mL/min (60-130) 07/31/18 18:20 12.9 (9.0-21.6) 07/31/18 18:20 101 mg/dL (70-110) 07/31/18 18:20 Calcium 8.9 mg/dL (7.9-10.9) 07/31/18 18:20 Magnesium 2.0 mg/dL (1.2-2.8) 07/31/18 18:20 Assessment/Plan - Narrative Narrative: 48-year-old male with a past medical history of CVA, depression, hypertension, anxiety, hyperlipidemia, sleep apnea presents with complaints of abnormal lab. He had seen his primary care physician in the office today for dry mouth and she did routine labs. His potassium was found to be 2.4. He was called at home and asked to come to the emergency department. In the ER he received 80 mEq of oral potassium and was started on providing manual equivalents 20 mEq of IV potassium. EKG showed nonspecific T wave abnormalities. Patient denied any chest pain shortness of breath, palpitations or other symptoms. He was admitted for observation. - Assessment/Plan (1) Hypokalemia Assessment: He has received 80 mEq of oral potassium, is currently receiving 20 mEq of IV potassium. I will give him another 50 mEq of oral potassium tonight and repeat blood work in the morning. Problem: Acute (2) Sleep apnea Assessment: Resume home CPAP. Problem: Acute (3) Hypertension Assessment: Blood pressure is elevated, resume from home blood pressure medications. Problem: Chronic Qualifiers: Hypertension type: essential hypertension Qualified Code(s): I10 - Essential (primary) hypertension
[2018-07-31] MEDS ORDERED: POTASSIUM BICARBONATE/CIT AC 25 MEQ TABLET.EFF PO ONE (20:05)
[2018-07-31] MEDS ORDERED: clonazePAM 0.5 MG TABLET PO PRN (20:08)
[2018-07-31] MEDS ORDERED: traZODone HCL 50 MG TABLET PO PRN (20:08)
[2018-07-31] MEDS ORDERED: ROSUVASTATIN CALCIUM 20 MG TABLET PO SCH (21:00)
[2018-07-31] MEDS ORDERED: LABETALOL HCL 300 MG TABLET PO SCH (21:00)
[2018-07-31] MEDS ORDERED: CLONIDINE HCL 0.2 MG TABLET PO SCH (21:00)
[2018-07-31] MEDS ORDERED: POTASSIUM BICARBONATE/CIT AC 25 MEQ TABLET.EFF ONE (21:24)
[2018-07-31] MEDS ORDERED: ROSUVASTATIN CALCIUM 10 MG TABLET ONE (21:25)
[2018-07-31] MEDS ORDERED: CLONIDINE HCL 0.1 MG TABLET ONE (21:25)
[2018-07-31] MEDS ORDERED: LABETALOL HCL 100 MG TABLET ONE (21:26)
[2018-07-31] MEDS: LABETALOL HCL 100 MG TABLET PO SCH (21:38)
[2018-07-31] MEDS ORDERED: ROSUVASTATIN CALCIUM 10 MG TABLET PO SCH (21:45)
[2018-07-31] MEDS ORDERED: CLONIDINE HCL 0.1 MG TABLET PO SCH (22:00)
[2018-08-01] MEDS: POTASSIUM CHLORIDE 20 MEQ in NORMAL SALINE 1,000 ML IV SCH (03:54)
[2018-08-01 06:10] LABS: Anion Gap 10.3 mmol/L (6.8-13.8); Calcium * 8.2 mg/dL (7.9-10.9); Carbon Dioxide 28.9 mmol/L (24-32.6); Estimated Creat Clear 81.1; Potassium 3.2 mmol/L (3.4-4.6)
[2018-08-01] MEDS ORDERED: POT CHLORIDE/POT BICARB/CIT AC 25 MEQ TABLET.EFF PO ONE (08:16)
[2018-08-01] MEDS ORDERED: ASPIRIN 325 MG TABLET.DR PO SCH (09:00)
[2018-08-01] MEDS ORDERED: LOSARTAN POTASSIUM 50 MG TABLET PO SCH (09:00)
[2018-08-01] MEDS ORDERED: SPIRONOLACTONE 25 MG TABLET PO SCH (09:00)
[2018-08-01] MEDS ORDERED: HYDROCHLOROTHIAZIDE 25 MG TABLET PO SCH (09:00)
[2018-08-01] MEDS ORDERED: NIFEdipine 30 MG TAB.SR.24H PO SCH (09:00)
[2018-08-01] MEDS ORDERED: SERTRALINE HCL 100 MG TABLET PO SCH (09:00)
[2018-08-01] MEDS ORDERED: CLONIDINE HCL 0.2 MG TABLET PO SCH (09:00)
[2018-08-01] MEDS ORDERED: POTASSIUM BICARBONATE/CIT AC 25 MEQ TABLET.EFF PO ONE (09:45)
[2018-08-01] MEDS: LABETALOL HCL 100 MG TABLET PO SCH (09:47)
--- NOTE | 2018-08-01 09:50 | DS ---
(1) Hypokalemia Problem: Acute (2) Sleep apnea Problem: Chronic (3) Hypertension Problem: Chronic Qualifiers: Hypertension type: essential hypertension Qualified Code(s): I10 - Essential (primary) hypertension Description of Stay: 48-year-old male with a past medical history of CVA, depression, hypertension, anxiety, hyperlipidemia, sleep apnea presents with complaints of abnormal lab. He had seen his primary care physician in the office today for dry mouth and she did routine labs. His potassium was found to be 2.4. He was called at home and asked to come to the emergency department. In the ER he received 80 mEq of oral potassium and was started on providing manual equivalents 20 mEq of IV potassium. EKG showed nonspecific T wave abnormalities. Patient denied any chest pain shortness of breath, palpitations or other symptoms. He was admitted for observation. Repeat potassium in the morning was 3.2 after 150 mEq of potassium. He will need to follow-up with his primary care physician on August 05, 2018 for repeat potassium level. I will send him home on some oral potassium 50 mEq daily for 3 days. Procedures Performed: none Results and Findings: Lab Pending Results 07/31/18 18:20: Sodium 141, Plasma Sodium 141, Potassium 2.5 L, Chloride 102, Carbon Dioxide 30.6, Anion Gap 10.9, BUN 16, Creatinine 1.24, Est GFR (Non-Af Amer) 80, BUN/Creatinine Ratio 12.9, Random Glucose 101, Calcium 8.9, Magnesium 2.0 08/01/18 05:53: Sodium 142, Plasma Sodium 143 H, Potassium 3.2 L D, Chloride 106, Carbon Dioxide 28.9, Anion Gap 10.3, BUN 12, Creatinine 1.09, Est GFR (Non- Af Amer) 93, BUN/Creatinine Ratio 11.0, Random Glucose 133 H D, Calcium 8.2 Discharge Location: Home Disposition: Home self-care Condition: Fair Discharge Activity: Activity as tolerated Discharge Diet: Low salt Referrals: Amy Montgomery MD [Primary Care Provider] - Prescriptions (Any new or edited meds): Potassium Bicarbonate/Cit AC [K-Lyte] 50 meq PO DAILY #6 tab Complete Home Medications List: Complete Home Medication List: Clonidine HCl [Catapres] 0.2 mg PO BID 04/11/16 Aspirin [Aspirin EC] 325 mg PO DAILY 12/21/16 Atorvastatin Calcium [Lipitor] 40 mg PO HS 12/21/16 Labetalol HCl 300 mg PO BID 02/19/18 losartan 100 mg-hydrochlorothiazide 25 mg tablet 1 tab PO DAILY #30 tab 03/20/18 spironolactone 25 mg tablet 25 mg PO DAILY #30 tab 03/20/18 sertraline 100 mg tablet 100 mg PO DAILY #30 tab 03/22/18 nifedipine ER 30 mg tablet,extended release 30 mg PO DAILY #30 tab 04/18/18 clonazepam 0.5 mg tablet 0.5 mg PO HS PRN #30 tab 06/27/18 trazodone 50 mg tablet See Rx Instructions PO HS PRN #60 tab 07/26/18 Potassium 198 mg PO DAILY 07/31/18 Potassium Bicarbonate/Cit AC [K-Lyte] 50 meq PO DAILY #6 tab 08/01/18
[2018-08-01 11:31] VITALS: BP 160/90
== END 2018-08-01 11:15 | disposition home or self-care (01) ==
LOC: MS 17:51 → ER 17:51 → MS 19:55
PROVIDERS: ADMIT Internal Medicine; ATTEND Internal Medicine
CPT/HCPCS: 36415; 80048; 83735; 93005; 94660; 96365; 96366; 99285; G0378